=== PATIENT | male | born 1940 | race Caucasian/White ===

== ENCOUNTER 2022-04-06 09:51 | Outpatient (CLI) | payer MEDICARE, SELFPAY ==
--- NOTE | ~2022-04-06 | CT_ITS ---
EXAMINATION: CT abdomen pelvis wo con DATE: 04/06/2022 10:13 INDICATION: UTI. TECHNIQUE: Computed tomography (CT) of the abdomen and pelvis was performed without intravenous contr ast. The dose-length product was 993.60 mGy-cm. Automated exposure control and iterative reconstructi on technique were employed. COMPARISON: CT dated 04/19/2014. FINDINGS: Small right pleural effusion. Cardiomegaly. There is diffuse atherosclerosis of the aorta w ithout aneurysm. Status post cholecystectomy. No thoracic lymphadenopathy. There is bilateral hydrone phrosis with transition of the right ureter in the pelvis, suspicious for stricture. No obstructing s tone or mass identified. There is a 2-3 mm left UVJ stone with associated hydronephrosis. There are n onobstructing bilateral renal stones. There is a stable 2.2 cm low-density right adrenal mass, consis tent with adrenal adenoma. There is a 9.6 cm exophytic right renal cyst. There is decreased size of h emorrhagic cyst in the left kidney anteriorly. Bladder is severely distended. Prostate gland is enlar ged. Colonic diverticulosis without evidence for diverticulitis. There is a fat-containing left ingui nal hernia. Nonobstructive bowel gas pattern. There are calcified granulomas in the spleen. The pancr eas, left adrenal gland are unremarkable. IMPRESSION: 1. Left UVJ stone measuring 2-3 mm with moderate left hydroureteronephrosis. 2: Moderate right hydronephrosis with transition in the pelvis, suspicious for stricture. No obstruc ting stone or mass identified. 3: Nonobstructing bilateral nephrolithiasis. 4: Small hiatal hernia. Reviewed, dictated and finalized at location A. X ADMINISTRATOR IMPRESSION: 1. Left UVJ stone measuring 2-3 mm with moderate left hydroureteronephrosis. 2: Moderate right hydronephrosis with transition in the pelvis, suspicious for stricture. No obstructing stone or mass identified. 3: Nonobstructing bilateral nephrolithiasis. 4: Small hiatal hernia.
== END 2022-04-06 09:52 | disposition home or self-care (01) ==
PROVIDERS: PCP Family Medicine; Visit Provider Urology
DX: N39.0 Urinary tract infection, site not specified (principal); N20.0 Calculus of kidney; N20.1 Calculus of ureter; N13.30 Unspecified hydronephrosis; K44.9 Diaphragmatic hernia without obstruction or gangrene
CPT/HCPCS: 74176

== ENCOUNTER 2022-04-11 00:49 | Day surgery (SDC) | payer MEDICARE, SELFPAY ==
--- NOTE | 2022-04-09 14:11 | P.HP_ITS ---
History of Present Illness History of Present Illness Consent: Risks, benefits, and alternatives have been discussed and questions answered. Patient agrees to proceed with procedure. Chief complaint: protus infection, overactive bladderr Narrative: Robbi Oneill is a 82 year old male recently underwent fairly extensive evaluation for recurrent urinary tract infections. CT scan the abdomen and pelvis without contrast shows a 2-3 mm left distal ureteral stone along with right hydronephrosis of uncertain etiology. He has had no significant flank pain but does complain of, as noted above, recurrent urinary tract infections. I have discussed these findings with him and planned endoscopic evaluation of each ureter and collecting system. He is aware of the risk of this including ureteral injury, postoperative hematuria and possible need for additional procedures Review of Systems Cardiovascular: Cardiovascular: Denies chest pain, Denies lightheadedness, Denies palpitations and Denies dyspnea Respiratory: Respiratory: Denies dyspnea Gastrointestinal: Gastrointestinal: Denies diarrhea, Denies nausea and Denies vomiting Genitourinary: Genitourinary: Denies hematuria and Denies dysuria Endocrine: Endocrine: Denies palpitations Meds Home Medications and Allergies Allergies Allergy/AdvReac Type Severity Reaction Status Date / Time Penicillins Allergy Severe HIVES Unverified 09/15/09 06:30 Exam Const: General: no acute distress Resp: Effort & Inspection: normal respiratory effort GI: Inspection: non-distended GI Palp: No abdominal tenderness and No Guarding due to palpation present (GI) Auscultation: normal bowel sounds Assessment and Plan Assessment and plan (1) Left ureteral stone: Code(s): N20.1 - Calculus of ureter Status: Acute (2) Hydronephrosis, right: Code(s): N13.30 - Unspecified hydronephrosis Status: Acute Assessment and Plan: * Cystoscopy, left ureteroscopy with stone extraction * Right retrograde pyelography with right ureteroscopy
[2022-04-10 08:32] VITALS: BMI 29.5
--- NOTE | 2022-04-10 08:56 | PC.NURSE ---
Report to the Outpatient Waiting Room, entrance under the green pavilion located off [facility], at time __1230 on date __04/11/22 . Planned Procedure Time: __2:30 PM____. Time changes happen often and if your time is changed the preop area will call you the afternoon before. - You and your visitor will be asked to self-screen and do not enter if you have any COVID symptoms. - Only one visitor is requested with a max of two and NO children visitors are allowed at this time. - The patient visitor may be requested to leave or wait in car when not with patient due to distancing restrictions. - A mask is optional within the hospital at this time. Patients may have clear liquids (water, carbonated beverages, clear teas, apple juice) until 3 hours prior to surgery (1130 AM) with a maximum of 20 ounces. - No food from midnight until time of surgery - Infants may have breast milk until 4 hours before surgery, infant formula 6 hours prior to surgery. - Children will be allowed to drink immediately following surgery. If applicable, please bring a bottle or sippy cup to assist with drinking. Juice, water, soda, and popsicles are readily available. For infants on formula, please bring formula the day of surgery. Pacifiers are allowed. Take the following medications with a SIP of water the morning of surgery: _AMLODIPINE, BUSPIRONE, CEFDINIR, CITALOPRAM, & HYDROCODONE IF NEEDED_ DO NOT STOP ANY OF YOUR OTHER PRESCRIPTION MEDICATIONS PRIOR TO SURGERY ?EXCEPT THE FOLLOWING Medications to discontinue per physician _PT STATES STOPPING ELIQUIS 04/08/22_ Date to take last dose Please no make-up, nail vietnamese, hairspray, perfume, deodorant, or body powder the day of surgery. No jewelry (including any body piercings) or valuables the day of surgery, leave them at home. Please take a shower or bath the night before, or the morning of, surgery with an antibacterial soap. Wear comfortable, loose fitting clothing. Children are encouraged to wear pajamas. - Jewelry must be removed prior to entering the operating room. Rings and piercings that are not removed may be cut off. - The hospital will not accept responsibility for valuables. - Please leave all valuables, including medications, at home the day of surgery. If you are going home after surgery, a licensed canal driver must drive you home. - NO public transportation without another adult if you receive anesthesia. - We recommend that an adult stay with you for 24 hours following discharge. - We also recommend that you do not drive, make important decision, drink alcoholic beverages, or take any drugs that were not prescribed by your health care provider for at least 24 hours after your discharge time. For Pediatric surgeries, we recommend two adults accompany the child home. Follow any additional instructions given to you from your surgeon. If you or anyone in your household have experienced Covid symptoms in the past week, please notify your surgeon or the nurse liaison at the phone number below for possible testing. Telephone instructions given to _PATIENT & SPOUSE_and asked if any additional questions and then verbalized understanding. Patient advised to call surgeon office or pre surgery nurse liaison [phone] if any additional questions.
[2022-04-11] VITALS (7 sets, daily range): BP systolic 101–172; BP diastolic 59–91; PULSE 87–90; RESP 13–16; TEMP 36.2–36.9; O2SAT 95–100
--- NOTE | ~2022-04-11 | XR_ITS ---
EXAMINATION: XR retrograde pyelo w/stent RT DATE: 04/11/2022 14:57 INDICATION: Left renal stone extraction TECHNIQUE: 4 fluoroscopic images of the abdomen and pelvis were obtained during procedure performed angel Walker. Radiologist was not present for the imaging or procedure. The amount of fluoroscopy navin e used during this procedure was 2.1 minutes. COMPARISON: CT abdomen and pelvis dated 04/06/2022 FINDINGS: Retrograde contrast injection into the bilateral renal collecting systems demonstrates mild bilateral hydronephrosis. A wire was advanced through the right ureter in upper pole calyx of the right kidney . Subsequent image demonstrates a right internal ureteral stent with distal loop formed in the bladde r and the proximal loop extending into the contrast opacified collecting system likely to the upper p ole calyx but assessment is limited by the surrounding contrast. L2-L5 lumbar posterior fusion with b ilateral vertical fidel and pedicle screw fixation. IMPRESSION: 1. Mild bilateral hydronephrosis and placement of a right internal ureteral stent. See procedure note for further detail. Reviewed, dictated and finalized at location A. [facility]ATIONS IMPRESSION: 1. Mild bilateral hydronephrosis and placement of a right internal ureteral sandrine nt. See procedure note for further detail.
--- NOTE | 2022-04-11 07:03 | WPDHPUPDATE1 ---
History and Physical Update Update Date/Time: 04/11/22 07:03 History and Physical has been reviewed, including an updated exam of the patient. There are NO changes in the patient's condition. Risks, benefits, and alternatives have been discussed and questions answered. Patient agrees to proceed with procedure.
--- NOTE | 2022-04-11 11:04 | WPDANESEPPF ---
Anes - Initial Pre Proc Eval Procedure: Operation Date: 04/11/22 14:30 Proposed Procedures p Cystoscopy, Left Ureteroscopy with Left Stone Extraction, Right Ureteroscopy with Right Retrograde Pyelogram, Possible Stent Placement - Nikunj Walker MD Date/Time: 04/11/22 11:04 Surgeon: Nikunj Walker MD Pre Op Diagnosis: protus infection, overactive bladderr Patient Data Age: 82 Gender: M Height: 1.75 m Weight: 90.9 kg Allergies Allergy/AdvReac Type Severity Reaction Status Date / Time Penicillins Allergy Severe HIVES Verified 04/11/22 12:10 Home Medications Medication Instructions Recorded Confirmed Type amlodipine 2.5 mg tablet 2.5 mg DAILY 04/10/22 04/10/22 History apixaban 5 mg tablet (Eliquis) 5 mg BID 04/10/22 04/10/22 History buspirone 5 mg tablet 5 mg BID 04/10/22 04/10/22 History cefdinir 300 mg capsule 300 mg BID 04/10/22 04/10/22 History citalopram 20 mg tablet 20 mg BID 04/10/22 04/10/22 History diphenhydramine 25 2 tablet PO HS PRN Sleep 04/10/22 04/10/22 History mg-acetaminophen 500 mg tablet (Tylenol PM Extra Strength) ezetimibe 10 mg tablet 10 mg HS 04/10/22 04/10/22 History furosemide 80 mg tablet 40 mg DAILY 04/10/22 04/10/22 History hydrocodone 5 mg-acetaminophen 325 1 tablet HS PRN Pain 04/10/22 04/10/22 History mg tablet potassium chloride 20 mEq 20 meq PO DAILY 04/10/22 04/10/22 History tablet,extended release(part/cryst) tamsulosin 0.4 mg capsule 0.4 mg PO BID 04/10/22 04/10/22 History Patient hx anesthesia problems: none Family hx anesthesia problems: none Results Review: All pre-operative results and documents have been reviewed as part of the pre-operative evaluation. [facility] Past Medical History Medical History (Updated 04/11/22 @ 11:06 by Naif Simpson DO) Anxiety Atrial fibrillation CAD (coronary artery disease) CHF (congestive heart failure) Hyperlipidemia Hypertension CLAUDETTE (obstructive sleep apnea) Bipap Surgical History Surgical History (Updated 04/11/22 @ 11:06 by Naif Simpson DO) History of coronary artery stent placement Social History Social History Smoking status: Never smoker Second hand tobacco smoke exposure: No Alcohol intake: current Drinks per week: 4 Substance use: never Substance use type: does not use Living arrangements: with family Spiritual care concerns: No Anes - Eval Final PreProcedure Day of Procedure 04/11/22 11:04 Patient weight: overweight Heart: regular rate and rhythm Lungs: clear to auscultation Airway: Mallampati scale class II Neurological: alert and oriented Last oral intake: >/= 8 hours ASA classification: IV Emergent: no Anesthetic plan: proceed Anesthesia type and monitoring: general LMA and standard monitoring Results Review: All pre-operative results and documents have been reviewed as part of the pre-operative evaluation. Informed Consent: The patient's anesthetic plan and its attendant risks and benefits were discussed with the patient/family/POA. Questions were solicited and answers provided to the satisfaction of the patient/family/POA.
--- NOTE | 2022-04-11 11:30 | ECG_ITS ---
Measurements Intervals [place] Rate: 74 P: 66 [place]: 171 QRS: -20 QRSD: 105 T: 94 QT: 414 QTc: 460 Interpretive Statements SINUS RHYTHM WITH FREQUENT SUPRAVENTRICULAR PREMATURE COMPLEXES NONSPECIFIC ST & T-WAVE ABNORMALITY ABNORMAL ECG NO PREVIOUS ECG AVAILABLE FOR COMPARISON Electronically Signed On 04-11-2022 14:02:06 [employer]EWATER PLANT OPERATOR by Kirby White M.D.
[2022-04-11] MEDS: LACTATED RINGERS 1,000 ML 30 ML IV CONT (12:14)
[2022-04-11 12:21] LABS: Anion Gap 6 mmol/L (8-16); Blood Urea Nitrogen 20 mg/dL (9-20); Carbon Dioxide 28 mmol/L (22-30); Chloride 110 mmol/L (98-107); Estimated CRCL calculation 35 ml/min; Estimated Glomerular Filt Rate 48; Glucose 97 mg/dL (65-110); Potassium 3.8 mmol/L (3.4-5.0); Sodium 144 mmol/L (137-145)
[2022-04-11] MEDS: ceFAZolin 2 GM/D5W 50 ML 2 GM/50 ML BAG IVPB (13:46)
--- NOTE | 2022-04-11 14:58 | W.PM.PROC2 ---
Procedure Note - Detailed Date of Procedure 04/11/22 Pre-op Diagnosis Recurrent UTI, left ureteral stone, right hydronephrosis Post-op Diagnosis Other (1. Left renal stone (no ureteral stone) 2. 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 Cystoscopy is undertaken with a 21 F rigid cystoscope. He has some significant lateral lobe hyperplasia with a small median lobe of the prostate. Prostatic urethra measures 3 cm. The bladder was trabeculated but without cellule formation. There was no intravesical foreign body or neoplasm. Is a single orthotopic ureteral orifice bilaterally. A 0.035 in glidewire was advanced in the left collecting system. Distal ureter was dilated with an 8 F 10 F dilator. The distal ureter was scoped with a short tapered semi-rigid ureteral scope. There found to be no stones at that site. He does have a small stone in his left kidney. I placed a 7.5 F flexible ureteral scope into the kidney. I fractured the stone in a left mid pole calyx with a 200 micron holmium laser fiber. The largest chip was evacuated. We used a dusting technique in the room no significant residual fragments left. I inspected the remainder of the ureter on the way out and, again, there were no ureteral stones. I opted not to place a stent in the left side. Right retrograde pyelography was undertaken with an angiographic catheter and a bulb tip catheter. There appears to be narrowing of the right ureter at the ureterovesical junction with more proximal hydronephrosis. I placed a 0.035 in glidewire to the right collecting system, dilated the distal ureter with an 8 F 10 F dilator. I performed distal ureteroscopy with a short tapered semi-rigid ureteral scope. There was no intravesical or intraureteral stones or other pathology in the distal right ureter. I did place a 6 F variable length stent which were I intend to leave for 2 weeks. Scopes and wires removed and he was taken to recovery room good condition. Drains Yes Packing No Pathology None sent Condition Stable
== END 2022-04-11 16:30 | disposition home or self-care (01) ==
PROVIDERS: Anesthesiology; PCP Family Medicine; Visit Provider Urology
PROC: (CPT 52352; principal; 2022-04-11 14:30)
DX: N20.0 Calculus of kidney (principal); N13.30 Unspecified hydronephrosis; I48.91 Unspecified atrial fibrillation; I25.10 Atherosclerotic heart disease of native coronary artery without angina pectoris; I11.0 Hypertensive heart disease with heart failure; I50.9 Heart failure, unspecified; E78.5 Hyperlipidemia, unspecified; G47.33 Obstructive sleep apnea (adult) (pediatric); F41.9 Anxiety disorder, unspecified; Z79.01 Long term (current) use of anticoagulants; Z95.5 Presence of coronary angioplasty implant and graft; Z87.440 Personal history of urinary (tract) infections
CPT/HCPCS: 52332; 52353; 36415; 74420; 80048; 82365; 88300; 93005; A9270; C1758; C1769; C2617; J0690; J2370; J2405; J2704; J3010; J7120

== ENCOUNTER 2022-04-26 10:53 | Outpatient (CLI) | payer MEDICARE, SELFPAY ==
--- NOTE | ~2022-04-26 | US_ITS ---
US renal BI 04/26/2022 11:52 Procedure: Realtime transabdominal ultrasound of the kidneys and bladder. Indication: Status post left ureteral stone extraction with dilated ureter on the right. Comparison: CT dated 04/06/2022 Findings: Renal echotexture is normal bilaterally without contour deforming mass or renal calculus. T here is moderate bilateral hydronephrosis. The right kidney measures 12.7 cm and left kidney measures 12.6 cm. Bladder within normal limits. Impression: 1: Moderate bilateral hydronephrosis. Reviewed, dictated and finalized at location A. CIATE PROFESSOR OF PHYSICS Impression: 1: Moderate bilateral hydronephrosis.
== END 2022-04-26 10:54 | disposition home or self-care (01) ==
PROVIDERS: PCP Family Medicine; Visit Provider Urology
DX: N13.30 Unspecified hydronephrosis (principal)
CPT/HCPCS: 76775

== ENCOUNTER 2022-05-23 16:36 | Emergency (ER) | payer MEDICARE, SELFPAY ==
[2022-05-23 17:42] VITALS: BP 109/43; PULSE 60; RESP 15; TEMP 36.4; O2SAT 100
[2022-05-23 19:04] LABS: Bacteria Urine 4+ /hpf; Non Pathogenic Casts 0-2; RBC Urine >100 /hpf (0-2); Squamous Epithelial Cell Urine None seen /hpf (Few); WBC Urine 51-100 /hpf
[2022-05-23 19:17] LABS: Appearance Urine Turbid (Clear); Bilirubin Urine Negative (Negative); Blood Urine 3+ (Negative); Glucose Urine UA Negative (Negative); Ketones Urine Negative (Negative); Leukocyte Esterase Ur 3+ LEU/UL (Negative); Nitrate Urine Negative (Negative); Protein Urine 2+ mg/dL (Negative); Specific Grav Ur 1.011 (1.001-1.035); pH Urine 8.5 (5.0-9.0)
[2022-05-23 19:20] LABS: Color Urine Light Red (Yellow)
[2022-05-23 19:21] LABS: Add Urine Microscopic? YES
--- NOTE | 2022-05-23 20:20 | ED.GENADULT ---
HPI - General Adult General Chief complaint: Urogenital-Male Stated complaint: blocked urinary catheter Time Seen by Provider: 05/23/22 19:33 History of Present Illness HPI narrative: This is an 82-year-old male with chronic indwelling Jacinto presenting to ED with decreased urine output. Patient notes over last 2 days his Jacinto has not been draining. He then developed abdominal pain in the suprapubic area. He denies fever, chills nausea vomiting diarrhea or any other complaints. Patient follows with Dr. Walker and has an appointment w/ him later this month. Related Data Home Medications Medication Instructions Recorded Confirmed amlodipine 2.5 mg tablet 2.5 mg DAILY 04/10/22 04/10/22 apixaban 5 mg tablet (Eliquis) 5 mg BID 04/10/22 04/10/22 buspirone 5 mg tablet 5 mg BID 04/10/22 04/10/22 cefdinir 300 mg capsule 300 mg BID 04/10/22 04/10/22 citalopram 20 mg tablet 20 mg BID 04/10/22 04/10/22 diphenhydramine 25 2 tablet PO HS PRN Sleep 04/10/22 04/10/22 mg-acetaminophen 500 mg tablet (Tylenol PM Extra Strength) ezetimibe 10 mg tablet 10 mg HS 04/10/22 04/10/22 furosemide 80 mg tablet 40 mg DAILY 04/10/22 04/10/22 hydrocodone 5 mg-acetaminophen 325 1 tablet HS PRN Pain 04/10/22 04/10/22 mg tablet potassium chloride 20 mEq 20 meq PO DAILY 04/10/22 04/10/22 tablet,extended release(part/cryst) tamsulosin 0.4 mg capsule 0.4 mg PO BID 04/10/22 04/10/22 Allergies Allergy/AdvReac Type Severity Reaction Status Date / Time Penicillins Allergy Severe HIVES Verified 05/23/22 19:33 [facility] Past Medical History Medical History Anxiety Atrial fibrillation CAD (coronary artery disease) CHF (congestive heart failure) Hyperlipidemia Hypertension CLAUDETTE (obstructive sleep apnea) Bipap Surgical History Surgical History History of coronary artery stent placement Social History Social History Smoking status: Never smoker Second hand tobacco smoke exposure: No Alcohol intake: current Drinks per week: 4 Substance use: never Substance use type: does not use Living arrangements: with family Spiritual care concerns: No Exam Narrative: APPEARANCE: No apparent distress. Head: atraumatic. EYES: EOMI, NOSE: Atraumatic NECK: Trachea midline RESPIRATORY: No increased rate of breathing, CTAB CARDIOVASCULAR: RRR, ABDOMINAL: Patient's jacinto has been replaced the time of my physical exam. His abdomen soft nontender no guarding or rebound. MUSCULOSKELETAl: No obvious deformities NEURO: Alert. Moving 4/4 extremities SKIN:: Warm, dry. Normal color PSYCHIATRIC: Normal affect Course Vital Signs Vital signs: Vital Signs Temperature 97.6 F 05/23/22 17:42 Pulse Rate 60 05/23/22 17:42 Respiratory Rate 15 05/23/22 17:42 Blood Pressure 109/43 L 05/23/22 17:42 Pulse Oximetry 100 05/23/22 17:42 Oxygen Delivery Room Air 05/23/22 17:42 Temperature 97.6 F 05/23/22 17:42 Pulse Rate 60 05/23/22 17:42 Respiratory Rate 15 05/23/22 17:42 Blood Pressure 109/43 L 05/23/22 17:42 Pulse Oximetry 100 05/23/22 17:42 Oxygen Delivery Room Air 05/23/22 17:42 Medical Decision Making [facility] Narrative Medical decision making narrative: -Presentation: 82-year-old male presenting with obstructed Jacinto -DDX includes but is not limited to: Jacinto malfunction, UTI -Co-morbidities complicating care: BPH, chronic anticoagulation -Social determinants of health: 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 Plus four bacteria. -Dx tests considered but not ordered: -Proce
[2022-05-23] MEDS: CIPROFLOXACIN 500 MG TAB PO (20:39)
[2022-05-23 20:59] VITALS: BP 138/72; PULSE 79; RESP 17; O2SAT 99
== END 2022-05-23 21:00 | disposition home or self-care (01) ==
PROVIDERS: Emergency Medicine; Emergency Provider Emergency Medicine; PCP Family Medicine
DX: N39.0 Urinary tract infection, site not specified (principal); R33.9 Retention of urine, unspecified; I48.91 Unspecified atrial fibrillation; I25.10 Atherosclerotic heart disease of native coronary artery without angina pectoris; I50.9 Heart failure, unspecified; I11.0 Hypertensive heart disease with heart failure; E78.5 Hyperlipidemia, unspecified; G47.33 Obstructive sleep apnea (adult) (pediatric); Z95.5 Presence of coronary angioplasty implant and graft; Z95.0 Presence of cardiac pacemaker; Z79.01 Long term (current) use of anticoagulants
CPT/HCPCS: 51702; 81001; 87077; 87086; 87186; 99283; A9270

== ENCOUNTER 2022-06-12 09:04 | Outpatient (CLI) | payer MEDICARE, SELFPAY ==
--- NOTE | ~2022-06-12 | US_ITS ---
EXAMINATION: US renal BI DATE: 06/12/2022 09:56 INDICATION: HYDRONEPHROSIS, RIGHT TECHNIQUE: Multiple grayscale and Doppler ultrasound images of the kidneys were obtained. COMPARISON: 04/26/2022; CT abdomen and pelvis 04/06/2022. FINDINGS: The right kidney measures 11.4 x 5.2 x 5.5 cm. The left kidney measures 11.7 x 5.0 x 5.8 cm. The kidn eys demonstrate normal parenchymal echogenicity. 10.7 cm exophytic right renal cyst, with thin mchugh, and a thin internal septum (Bosniak 2). 1.3 cm simple left renal cyst. There is mild bilateral hydro nephrosis. The bladder is partially decompressed by a Mathew catheter. IMPRESSION: Mild bilateral hydronephrosis. Bilateral simple renal cysts, measuring up to 10.7 cm on the right. Reviewed, dictated and finalized at location K. IMPRESSION: Mild bilateral hydronephrosis. Bilateral simple renal cysts, measuring up to 10 .7 cm on the right.
== END 2022-06-12 09:05 | disposition home or self-care (01) ==
LOC: ANHIMG 09:16
PROVIDERS: PCP Family Medicine; Visit Provider Urology
DX: N13.30 Unspecified hydronephrosis (principal); N28.1 Cyst of kidney, acquired
CPT/HCPCS: 76775

== ENCOUNTER 2023-03-11 13:52 | Outpatient (CLI) | payer MEDICARE, SELFPAY ==
[2023-03-11 14:26] LABS: Anion Gap 5 mmol/L (8-16); Blood Urea Nitrogen 26 mg/dL (9-20); Calcium 8.4 mg/dL (8.4-10.2); Carbon Dioxide 29 mmol/L (22-30); Chloride 103 mmol/L (98-107); Estimated Glomerular Filt Rate 38; Glucose 93 mg/dL (65-110); Sodium 137 mmol/L (137-145)
== END 2023-03-11 13:53 | disposition home or self-care (01) ==
LOC: ANHSURGERY 13:56
PROVIDERS: Anesthesiology; PCP Family Medicine; Visit Provider Urology
DX: I10 Essential (primary) hypertension (principal); Z01.818 Encounter for other preprocedural examination
CPT/HCPCS: 36415; 80048

== ENCOUNTER 2023-03-13 01:10 | Day surgery (SDC) | payer MEDICARE, SELFPAY ==
--- NOTE | 2023-03-07 09:28 | PC.NURSE ---
Report to the Outpatient Waiting Room, entrance under the green pavilion located off [facility], at time _1200 on date _03/13/23 . Planned Procedure Time: _1400 . Time changes happen often and if your time is changed the preop area will call you the afternoon before. - You and your visitor will be asked to self-screen and do not enter if you have any COVID symptoms. - A mask is optional within the hospital at this time. Patients may have clear liquids (water, carbonated beverages, clear teas, apple juice) until 3 hours prior to surgery( 11:00 AM) with a maximum of 20 ounces. - No food from midnight until time of surgery - Infants may have breast milk until 4 hours before surgery, infant formula 6 hours prior to surgery. - Children will be allowed to drink immediately following surgery. If applicable, please bring a bottle or sippy cup to assist with drinking. Juice, water, soda, and popsicles are readily available. For infants on formula, please bring formula the day of surgery. Pacifiers are allowed. Take the following medications with a SIP of water the morning of surgery: __INHALER IF NEEDED,AMLODIPINE,BUSPIRONE,METOPROLOL DO NOT STOP ANY OF YOUR OTHER PRESCRIPTION MEDICATIONS PRIOR TO SURGERY ?EXCEPT THE FOLLOWING Medications to discontinue per physician ___PT STATES LAST DOSE ASPIRIN 03/06/23 AND HOLD ELIQUIS 3 DAYS PRE OP .PER DR HENNESSY LAST DOSE 03/09/23 Please no make-up, nail chadian, hairspray, perfume, deodorant, or body powder the day of surgery. No jewelry (including any body piercings) or valuables the day of surgery, leave them at home. Please take a shower or bath the night before, or the morning of, surgery with an antibacterial soap. Wear comfortable, loose fitting clothing. Children are encouraged to wear pajamas. - Jewelry must be removed prior to entering the operating room. Rings and piercings that are not removed may be cut off. - The hospital will not accept responsibility for valuables. - Please leave all valuables, including medications, at home the day of surgery. If you are going home after surgery, a licensed fire truck driver must drive you home. - NO public transportation without another adult if you receive anesthesia. - We recommend that an adult stay with you for 24 hours following discharge. - We also recommend that you do not drive, make important decision, drink alcoholic beverages, or take any drugs that were not prescribed by your health care provider for at least 24 hours after your discharge time. For Pediatric surgeries, we recommend two adults accompany the child home. Follow any additional instructions given to you from your surgeon. If you or anyone in your household have experienced Covid symptoms in the past week, please notify your surgeon or the nurse liaison at the phone number below for possible testing. Telephone instructions given to ___PT AND TETE MUNOZ and asked if any additional questions and then verbalized understanding. Patient advised to call surgeon office or pre surgery nurse liaison [phone] if any additional questions.
[2023-03-07 09:45] VITALS: BMI 29.5
--- NOTE | 2023-03-07 10:43 | PM.HPGS ---
History of Present Illness History of Present Illness Consent: Risks, benefits, and alternatives have been discussed and questions answered. Patient agrees to proceed with procedure. Chief complaint: Right Ureteral Stone Narrative: Robbi Oneill is a 83 year old male well known to me with a long history of BPH. He recently took a fall and developed gross hematuria. The CT scan of the abdomen and pelvis at [facility] demonstrated 9 mm stone in his right kidney and a 3 mm stone in his left. After discussion of options he had elected for right ESWL. In the interval, before he could have that done, the stone dropped into his ureter necessitating a ureteral stent placement at [facility]. He now presents for cystoscopy with right ureteroscopy, laser lithotripsy with stone extraction, possible retrograde pyelography and stent replacement. He is aware the risk including, but not limited to, recurrent stones, need for additional procedures, postoperative hematuria and perinephric hematoma. Review of Systems Cardiovascular: Cardiovascular: Denies chest pain, Denies lightheadedness, Denies palpitations and Denies dyspnea Respiratory: Respiratory: Denies dyspnea Gastrointestinal: Gastrointestinal: Denies diarrhea, Denies nausea and Denies vomiting Genitourinary: Genitourinary: Denies hematuria and Denies dysuria Endocrine: Endocrine: Denies palpitations PMFSH Past Medical History Medical History Anxiety Atrial fibrillation CAD (coronary artery disease) CHF (congestive heart failure) Hyperlipidemia Hypertension CLAUDETTE (obstructive sleep apnea) Bipap Surgical History Surgical History History of coronary artery stent placement Social History Social History Smoking status: Never smoker Second hand tobacco smoke exposure: No Alcohol intake: current Drinks per week: 4 Substance use: never Substance use type: does not use Living arrangements: with family Spiritual care concerns: No Meds Home Medications and Allergies Home Medications Medication Instructions Recorded Confirmed Type apixaban 5 mg tablet (Eliquis) 5 mg BID 04/10/22 03/07/23 History buspirone 5 mg tablet 5 mg PO BID 04/10/22 03/07/23 History ezetimibe 10 mg tablet 10 mg PO HS 04/10/22 03/07/23 History potassium chloride 20 mEq 20 meq PO DAILY 04/10/22 03/07/23 History tablet,extended release(part/cryst) tamsulosin 0.4 mg capsule 0.4 mg PO BID 04/10/22 03/07/23 History hydrocodone 5 mg-acetaminophen 325 1 - 2 tablet PO Q6H PRN pain #20 04/11/22 03/07/23 Rx mg tablet tabs albuterol sulfate 90 mcg/actuation 2 puff inhalation PRN PRN 03/07/23 03/07/23 History aerosol inhaler Shortness Of Breath amlodipine 5 mg tablet 5 mg PO DAILY 03/07/23 03/07/23 History aspirin 81 mg tablet,delayed 81 mg PO DAILY 03/07/23 03/07/23 History release (Adult Low Dose Aspirin) cefdinir 300 mg capsule 300 mg PO BID 03/07/23 03/07/23 History finasteride 5 mg tablet 5 mg PO HS 03/07/23 03/07/23 History fluticasone propionate 50 2 spray intranasal PRN PRN Allergy 03/07/23 03/07/23 History mcg/actuation nasal Symptoms spray,suspension furosemide 20 mg tablet 40 mg PO DAILY 03/07/23 03/07/23 History metoprolol tartrate 50 mg tablet 50 mg PO BID 03/07/23 03/07/23 History ondansetron 4 mg disintegrating 4 mg PO PRN PRN Nausea 03/07/23 03/07/23 History tablet pantoprazole 40 mg tablet,delayed 40 mg PO DAILY 03/07/23 03/07/23 History release Allergies Allergy/AdvReac Type Severity Reaction Status Date / Time Penicillins Allergy Severe HIVES Verified 03/07/23 09:08 Exam Const: General: no acute distress Resp: Effort & Inspection: normal respiratory effort GI: Inspection: non-distended GI Palp: No abdominal tenderness and No Guarding due to palpa
--- NOTE | 2023-03-07 10:45 | PM.HPGS ---
History of Present Illness History of Present Illness Consent: Risks, benefits, and alternatives have been discussed and questions answered. Patient agrees to proceed with procedure. Chief complaint: Right Ureteral Stone Narrative: Robbi Oneill is a 83 year old male with a known history of prostate cancer status post pelvic radiation that was completed in May 2019. He recently developed gross hematuria. 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 Cystoscopy initially was felt to be unremarkable but upon repeat cystoscopy he has an unusual sessile looking lesion in the left lateral bladder wall. After discussion he elects for TURBT. He is aware the risk including, but not limited to, need for additional procedures, bladder wall injury, postoperative hematuria and recurrence of this lesion. Review of Systems Cardiovascular: Cardiovascular: Denies chest pain, Denies lightheadedness, Denies palpitations and Denies dyspnea Respiratory: Respiratory: Denies dyspnea Gastrointestinal: Gastrointestinal: Denies diarrhea, Denies nausea and Denies vomiting Genitourinary: Genitourinary: Denies hematuria and Denies dysuria Endocrine: Endocrine: Denies palpitations PMFSH Past Medical History Medical History Anxiety Atrial fibrillation CAD (coronary artery disease) CHF (congestive heart failure) Hyperlipidemia Hypertension CLAUDETTE (obstructive sleep apnea) Bipap Surgical History Surgical History History of coronary artery stent placement Social History Social History Smoking status: Never smoker Second hand tobacco smoke exposure: No Alcohol intake: current Drinks per week: 4 Substance use: never Substance use type: does not use Living arrangements: with family Spiritual care concerns: No Meds Home Medications and Allergies Home Medications Medication Instructions Recorded Confirmed Type apixaban 5 mg tablet (Eliquis) 5 mg BID 04/10/22 03/07/23 History buspirone 5 mg tablet 5 mg PO BID 04/10/22 03/07/23 History ezetimibe 10 mg tablet 10 mg PO HS 04/10/22 03/07/23 History potassium chloride 20 mEq 20 meq PO DAILY 04/10/22 03/07/23 History tablet,extended release(part/cryst) tamsulosin 0.4 mg capsule 0.4 mg PO BID 04/10/22 03/07/23 History hydrocodone 5 mg-acetaminophen 325 1 - 2 tablet PO Q6H PRN pain #20 04/11/22 03/07/23 Rx mg tablet tabs albuterol sulfate 90 mcg/actuation 2 puff inhalation PRN PRN 03/07/23 03/07/23 History aerosol inhaler Shortness Of Breath amlodipine 5 mg tablet 5 mg PO DAILY 03/07/23 03/07/23 History aspirin 81 mg tablet,delayed 81 mg PO DAILY 03/07/23 03/07/23 History release (Adult Low Dose Aspirin) cefdinir 300 mg capsule 300 mg PO BID 03/07/23 03/07/23 History finasteride 5 mg tablet 5 mg PO HS 03/07/23 03/07/23 History fluticasone propionate 50 2 spray intranasal PRN PRN Allergy 03/07/23 03/07/23 History mcg/actuation nasal Symptoms spray,suspension furosemide 20 mg tablet 40 mg PO DAILY 03/07/23 03/07/23 History metoprolol tartrate 50 mg tablet 50 mg PO BID 03/07/23 03/07/23 History ondansetron 4 mg disintegrating 4 mg PO PRN PRN Nausea 03/07/23 03/07/23 History tablet pantoprazole 40 mg tablet,delayed 40 mg PO DAILY 03/07/23 03/07/23 History release Allergies Allergy/AdvReac Type Severity Reaction Status Date / Time Penicillins Allergy Severe HIVES Verified 03/07/23 09:08 Exam Const: General: no acute distress Resp: Effort & Inspection: normal respiratory effort GI: Inspection: non-distended GI Palp: No abdominal tenderness and No Guarding due to palpation present (GI) Auscultation: normal bowel sounds Assessment and Plan Assessment and plan (1) Gross hematuria: Code(s): R31.0 - Gross hematuria Status: A
[2023-03-13] VITALS (9 sets, daily range): BP systolic 103–148; BP diastolic 50–67; PULSE 60–76; RESP 13–16; TEMP 36.2; O2SAT 98–100
--- NOTE | ~2023-03-13 | XR_ITS ---
EXAMINATION: XR retrograde pyelo w/stent RT DATE: 03/13/2023 12:55 INDICATION: Right ureteral stone. TECHNIQUE: 37 intraoperative fluoroscopic views of the abdomen and pelvis were obtained. I was not pr esent. Fluoroscopy exposure time was 61 seconds. COMPARISON: CT abdomen and pelvis 04/07/22 FINDINGS: There are changes of posterior fusion procedure in lumbar spine. There is a total left hip arthroplasty. Surgical clips in the right upper quadrant are likely from cholecystectomy. There is a right internal ureteral stent in expected position. IMPRESSION: 1. Right internal ureteral stent in expected position. Reviewed, dictated and finalized at location E. K CABLEMAN
--- NOTE | 2023-03-13 06:24 | WPDHPUPDATE1 ---
History and Physical Update Update Date/Time: 03/13/23 06:24 History and Physical has been reviewed, including an updated exam of the patient. There are NO changes in the patient's condition. Risks, benefits, and alternatives have been discussed and questions answered. Patient agrees to proceed with procedure.
[2023-03-13] MEDS: LACTATED RINGERS 1,000 ML 30 ML IV CONT (10:30)
--- NOTE | 2023-03-13 11:50 | WPDANESEPPF ---
Anes - Initial Pre Proc Eval Procedure: Operation Date: 03/13/23 12:00 Proposed Procedures p Cystoscopy, Right Ureteroscopy, Right Stone Extraction, Possible Holmium Laser Lithotripsy, Possible Right Stent Placement, Possible Right Retrograde Pyelogram - Nikunj Walker MD Date/Time: 03/13/23 11:50 Surgeon: Nikunj Walker MD Pre Op Diagnosis: Right Ureteral Stone Patient Data Age: 83 Gender: M Height: 1.75 m Weight: 90.8 kg Last Vital Signs Temp 97.1 F L 03/13/23 10:18 Pulse 76 03/13/23 10:18 Resp 16 03/13/23 10:18 BP 103/51 L 03/13/23 10:18 Pulse Ox 100 03/13/23 10:18 O2 Del Method Room Air 03/13/23 10:18 Allergies Allergy/AdvReac Type Severity Reaction Status Date / Time Penicillins Allergy Severe HIVES Verified 03/13/23 10:07 Home Medications Medication Instructions Recorded Confirmed Type apixaban 5 mg tablet (Eliquis) 5 mg BID 04/10/22 03/07/23 History buspirone 5 mg tablet 5 mg PO BID 04/10/22 03/07/23 History ezetimibe 10 mg tablet 10 mg PO HS 04/10/22 03/07/23 History potassium chloride 20 mEq 20 meq PO DAILY 04/10/22 03/07/23 History tablet,extended release(part/cryst) tamsulosin 0.4 mg capsule 0.4 mg PO BID 04/10/22 03/07/23 History hydrocodone 5 mg-acetaminophen 325 1 - 2 tablet PO Q6H PRN pain #20 04/11/22 03/07/23 Rx mg tablet tabs albuterol sulfate 90 mcg/actuation 2 puff inhalation PRN PRN 03/07/23 03/07/23 History aerosol inhaler Shortness Of Breath amlodipine 5 mg tablet 5 mg PO DAILY 03/07/23 03/07/23 History aspirin 81 mg tablet,delayed 81 mg PO DAILY 03/07/23 03/07/23 History release (Adult Low Dose Aspirin) cefdinir 300 mg capsule 300 mg PO BID 03/07/23 03/07/23 History finasteride 5 mg tablet 5 mg PO HS 03/07/23 03/07/23 History fluticasone propionate 50 2 spray intranasal PRN PRN Allergy 03/07/23 03/07/23 History mcg/actuation nasal Symptoms spray,suspension furosemide 20 mg tablet 40 mg PO DAILY 03/07/23 03/07/23 History metoprolol tartrate 50 mg tablet 50 mg PO BID 03/07/23 03/07/23 History ondansetron 4 mg disintegrating 4 mg PO PRN PRN Nausea 03/07/23 03/07/23 History tablet pantoprazole 40 mg tablet,delayed 40 mg PO DAILY 03/07/23 03/07/23 History release Patient hx anesthesia problems: none Family hx anesthesia problems: none Results Review: All pre-operative results and documents have been reviewed as part of the pre-operative evaluation. [facility] Past Medical History Medical History Anxiety Atrial fibrillation CAD (coronary artery disease) CHF (congestive heart failure) Hyperlipidemia Hypertension CLAUDETTE (obstructive sleep apnea) Bipap Surgical History Surgical History History of coronary artery stent placement Social History Social History Smoking status: Never smoker Second hand tobacco smoke exposure: No Alcohol intake: current Drinks per week: 4 Substance use: never Substance use type: does not use Living arrangements: with family Spiritual care concerns: No Anes - Eval Final PreProcedure Day of Procedure 03/13/23 11:50 Patient weight: obese Heart: regular rate and rhythm Lungs: clear to auscultation Airway: Mallampati scale class III Neurological: alert and oriented Last oral intake: >/= 8 hours ASA classification: IV Emergent: no Anesthetic plan: proceed Anesthesia type and monitoring: general LMA and standard monitoring (had CHF in hospital in [place]; Lasix given; no ECHO or EF on chart; will treat as decreased EF) Results Review: All pre-operative results and documents have been reviewed as part of the pre-operative evaluation. Informed Consent: The patient's anesthetic plan and its attendant risks and benefits were discussed with the patient/family/POA. Questions were solicited and answers provided to the sa
[2023-03-13] MEDS: ceFAZolin 2 GM/D5W 50 ML 2 GM/50 ML BAG IVPB (12:03)
[2023-03-13] MEDS: LIDOCAINE HCL 2% GEL UROJET 10 ML PKG MUCOUS MEM (12:24)
--- NOTE | 2023-03-13 12:50 | W.PM.PROC2 ---
Procedure Note - Detailed Date of Procedure 03/13/23 Pre-op Diagnosis Right Ureteral Stone Post-op Diagnosis Same Procedure Performed Cystoscopy, right retrograde pyelography, right ureteroscopy with laser lithotripsy, stone extraction and stent replacement Surgeon Nikunj Walker MD Anesthesia General Description of Procedure Patient is brought to the operative suite was prepped and draped in routine sterile fashion while in dorsal lithotomy position after the uneventful induction of a general LMA anesthetic. Cystoscopy was undertaken with a 21 F rigid cystoscope after placing 2% lidocaine jelly in his urethra. Tip of the indwelling stent is grasped and the stent is removed with ease. A 0.035 in glidewire was advanced into his right renal pelvis and the distal ureter was dilated with an 8 F 10 F dilator. I 1st performed rigid ureteroscopy of the distal ureter. The stone is not present in the distal ureter. I performed a retrograde pyelogram through the rigid ureteral scope. I can see a filling defect in the proximal ureter. An 11 F / 13 F ureteral access sheath was placed and a safety wire was placed. Ureteroscopy undertaken with a 7.5 F flexible ureteral scope. The 9 mm proximal ureteral stone is fractured with a 200 micron Carloz laser fiber. The stone was dusted. All fragments were removed with a 1.9 F disposable stone basket. Rhinoscopy and ureteroscopy of the more proximal ureter was unremarkable. A 4.8 F ureteral stent is placed with proximal coil in the renal pelvis and distal coil in the bladder. Scopes wires removed he was taken to the recovery room good condition Drains Yes Packing No Pathology Yes Complications No immediate complications Condition Stable Disposition PACU
== END 2023-03-13 14:50 | disposition home or self-care (01) ==
PROVIDERS: PCP Family Medicine; Visit Provider Urology
PROC: (CPT 52352; principal; 2023-03-13 12:00)
DX: N20.1 Calculus of ureter (principal); I11.0 Hypertensive heart disease with heart failure; I50.9 Heart failure, unspecified; F41.9 Anxiety disorder, unspecified; E78.5 Hyperlipidemia, unspecified; G47.33 Obstructive sleep apnea (adult) (pediatric); E66.9 Obesity, unspecified; Z68.29 Body mass index [BMI] 29.0-29.9, adult; Z99.89 Dependence on other enabling machines and devices; Z96.0 Presence of urogenital implants; Z86.79 Personal history of other diseases of the circulatory system; Z79.01 Long term (current) use of anticoagulants; Z79.891 Long term (current) use of opiate analgesic; Z79.51 Long term (current) use of inhaled steroids; Z79.82 Long term (current) use of aspirin
CPT/HCPCS: 52356; 36415; 74420; 80048; 82365; 88300; C1758; C1769; C1894; C2617; J0690; J1100; J2371; J2405; J2704; J3010; J7120; Q9966

== ENCOUNTER 2023-06-03 09:56 | Outpatient (CLI) | payer MEDICARE, SELFPAY ==
--- NOTE | ~2023-06-03 | XR_ITS ---
XR abdomen/kub 1V 06/03/2023 10:15 Indication: Renal stones Procedure: KUB Comparison: Comparison to multiple prior studies sequentially, with oldest reviewed study dated 06/03. Findings: There is severe lumbar spondylosis. There is fusion from L2-L5 with pedicle screws. There i s dextroscoliosis. There is a right renal stone. There is a left total hip arthroplasty. 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 Bowel pattern nonobstructive. Moderate colonic fecal loading. Impression: 1: Right nephrolithiasis. Reviewed, dictated and finalized at location L. Impression: 1: Right nephrolithiasis.
== END 2023-06-03 09:57 | disposition home or self-care (01) ==
PROVIDERS: PCP Family Medicine; Visit Provider Urology
DX: N20.0 Calculus of kidney (principal)
CPT/HCPCS: 74018

== ENCOUNTER 2023-09-15 09:50 | Outpatient (CLI) | payer MEDICARE, SELFPAY ==
--- NOTE | 2023-09-15 09:57 | ECG_ITS ---
Test Date: 2023-09-15 10:19:14 Measurements Intervals [place] Rate: 68 P: 0 IN: 0 QRS: 267 QRSD: 175 T: 76 QT: 488 QTc: 520 Interpretive Statements ELECTRONIC ATRIAL PAEMAKER WITH INHIBITION ELECTRONIC VENTRICULAR PACEMAKER BASELINE ARTIFACT- I, II, III, AVR, AVL, AVF NO FURTHER INTERPRETATION IS POSSIBLE ATYPICAL ECG No previous ECG available for comparison Electronically Signed On 09-15-2023 10:50:36 CDT by Lloyd Quinonez D.O.
[2023-09-15 10:40] LABS: INR 1.3; Prothrombin Time 16.9 Seconds (11.1-14.7)
[2023-09-15 10:41] LABS: Partial Thromboplastin Time 34.6 Seconds (22.3-36.8)
[2023-09-15 10:46] LABS: Anion Gap 11 mmol/L (4-12); Blood Urea Nitrogen 30 mg/dL (9-20); Carbon Dioxide 24 mmol/L (22-30); Chloride 105 mmol/L (98-107); Estimated Glomerular Filt Rate 48; Glucose 98 mg/dL (65-110); Sodium 140 mmol/L (137-145)
== END 2023-09-15 09:51 | disposition home or self-care (01) ==
LOC: ANHSURGERY 09:53
PROVIDERS: Anesthesiology; PCP Family Medicine; Visit Provider Urology
DX: Z01.818 Encounter for other preprocedural examination (principal); N21.0 Calculus in bladder; I10 Essential (primary) hypertension
CPT/HCPCS: 36415; 80048; 85610; 85730; 87077; 87086; 87088; 87186; 93005

== ENCOUNTER 2023-10-09 10:10 | Outpatient (CLI) | payer MEDICARE, SELFPAY ==
[2023-10-09 10:56] LABS: Prothrombin Time 13.7 Seconds (11.1-14.7)
== END 2023-10-09 10:11 | disposition home or self-care (01) ==
LOC: ANHSURGERY 10:15
PROVIDERS: PCP Family Medicine; Visit Provider Urology
DX: N20.0 Calculus of kidney (principal); Z01.818 Encounter for other preprocedural examination
CPT/HCPCS: 36415; 85610; 85730

== ENCOUNTER 2023-10-17 00:45 | Day surgery (SDC) | payer MEDICARE, SELFPAY ==
--- NOTE | 2023-09-12 11:32 | PC.NURSE ---
Report to the Outpatient Waiting Room, entrance under the green pavilion located off [facility], at time __1000 AM on date _09/19/23 . Planned Procedure Time: __1200 NOON . Time changes happen often and if your time is changed the preop area will call you the afternoon before. - You and your visitor will be asked to self-screen and do not enter if you have any COVID symptoms. - A mask is optional within the hospital at this time. Patients may have clear liquids (water, carbonated beverages, clear teas, apple juice) until 3 hours prior to surgery ( 9:00 AM)with a maximum of 20 ounces. - No food from midnight until time of surgery - Infants may have breast milk until 4 hours before surgery, formula 6 hours prior to surgery. - Children will be allowed to drink immediately following surgery. If applicable, please bring a bottle or sippy cup to assist with drinking. Juice, water, soda, and popsicles are readily available. For infants on formula, please bring formula the day of surgery. Pacifiers are allowed. Take the following medications with a SIP of water the morning of surgery: __SYMBICORT INHALER,AMLODIPINE,BUSPIRONE,ESCITALOPRAM,METOPROLOL DO NOT STOP ANY OF YOUR OTHER PRESCRIPTION MEDICATIONS PRIOR TO SURGERY ?EXCEPT THE FOLLOWING Medications to discontinue per physician ____HOLD ELIQUIS 3 DAYS PRE OP PER DR HENNESSY.LAST DOSE 09/15/23 Please no make-up, nail british, hairspray, perfume, deodorant, or body powder the day of surgery. No jewelry (including any body piercings) or valuables the day of surgery, leave them at home. Please take a shower or bath the night before, or the morning of, surgery with an antibacterial soap. Wear comfortable, loose fitting clothing. Children are encouraged to wear pajamas. - Jewelry must be removed prior to entering the operating room. Rings and piercings that are not removed may be cut off. - The hospital will not accept responsibility for valuables. - Please leave all valuables, including medications, at home the day of surgery. If you are going home after surgery, a licensed mobile lounge driver must drive you home. - NO public transportation without another adult if you receive anesthesia. - We recommend that an adult stay with you for 24 hours following discharge. - We also recommend that you do not drive, make important decision, drink alcoholic beverages, or take any drugs that were not prescribed by your health care provider for at least 24 hours after your discharge time. For Pediatric surgeries, we recommend two adults accompany the child home. Follow any additional instructions given to you from your surgeon. If you or anyone in your household have experienced Covid symptoms in the past week, please notify your surgeon or the nurse liaison at the phone number below for possible testing. Telephone instructions given to _WIFE TAMMY and asked if any additional questions and then verbalized understanding. Patient advised to call surgeon office or pre surgery nurse liaison [phone] if any additional questions.
[2023-09-12 12:37] VITALS: BMI 28.8
--- NOTE | 2023-10-07 14:53 | PC.NURSE ---
Report to the Outpatient Waiting Room, entrance under the green pavilion located off [facility], at time _0730_ on date _[id number]_. Planned Procedure Time: _0930_. Time changes happen often and if your time is changed the preop area will call you the afternoon before. - You and your visitor will be asked to self-screen and do not enter if you have any COVID symptoms. - A mask is optional within the hospital at this time. Patients may have clear liquids (water, carbonated beverages, clear teas, apple juice) until 3 hours prior to surgery with a maximum of 20 ounces. - No food from midnight until time of surgery Take the following medications with a SIP of water the morning of surgery: ___Symbicort, Amlodipine, Buspirone, Escitalopram and Metoprolol.___ DO NOT STOP ANY OF YOUR OTHER PRESCRIPTION MEDICATIONS PRIOR TO SURGERY ?EXCEPT THE FOLLOWING Medications to discontinue per physician ___Clopedegrel and Aspirin____ Date to take last dose___Hold as instructed by Dr Walker. Please no make-up, nail maori, hairspray, perfume, deodorant, or body powder the day of surgery. No jewelry (including any body piercings) or valuables the day of surgery, leave them at home. Please take a shower or bath the night before, or the morning of, surgery with an antibacterial soap. Wear comfortable, loose fitting clothing. - Jewelry must be removed prior to entering the operating room. Rings and piercings that are not removed may be cut off. - The hospital will not accept responsibility for valuables. - Please leave all valuables, including medications, at home the day of surgery. If you are going home after surgery, a licensed diesel truck driver must drive you home. - NO public transportation without another adult if you receive anesthesia. - We recommend that an adult stay with you for 24 hours following discharge. - We also recommend that you do not drive, make important decision, drink alcoholic beverages, or take any drugs that were not prescribed by your health care provider for at least 24 hours after your discharge time. Follow any additional instructions given to you from your surgeon. If you or anyone in your household have experienced Covid symptoms in the past week, please notify your surgeon or the nurse liaison at the phone number below for possible testing. Telephone instructions given to __James__and asked if any additional questions and then verbalized understanding. Patient advised to call surgeon office or pre surgery nurse liaison [phone] if any additional questions.
[2023-10-17] VITALS (8 sets, daily range): BP systolic 99–134; BP diastolic 54–81; PULSE 61–70; RESP 12–18; TEMP 36.3–36.6; O2SAT 96–98
--- NOTE | ~2023-10-17 | XR_ITS ---
EXAMINATION: XR abdomen/kub 1V DATE: 10/17/2023 07:51 INDICATION: Kidney stone. TECHNIQUE: A supine view of the abdomen on 2 radiographs was obtained. COMPARISON: Abdomen radiographs 06/03/2023, CT abdomen and pelvis 04/06/2022 FINDINGS: Surgical clips in the right upper quadrant are likely from cholecystectomy. There are adame es of posterior fusion procedure in lumbar spine. There is a total left hip arthroplasty. A catheter overlies the bladder. There are phleboliths in the pelvis. There is a 10 mm stone in right kidney. Th ere is a 3 mm stone in left kidney. IMPRESSION: 1. Bilateral kidney stones. Reviewed, dictated and finalized at location A. IMPRESSION: 1. Bilateral kidney stones.
--- NOTE | 2023-10-17 06:18 | WPDHPUPDATE1 ---
History and Physical Update Update Date/Time: 10/17/23 06:18 History and Physical has been reviewed, including an updated exam of the patient. There are NO changes in the patient's condition. Risks, benefits, and alternatives have been discussed and questions answered. Patient agrees to proceed with procedure.
[2023-10-17] MEDS: LACTATED RINGERS 1,000 ML 30 ML IV CONT (08:00)
--- NOTE | 2023-10-17 08:08 | WPDANESEPPF ---
Anes - Initial Pre Proc Eval Procedure: Operation Date: 10/17/23 08:30 Proposed Procedures p Right Extracorporeal Shock Wave Lithotripsy - Nikunj Walker MD s Cystoscopy, Holmium Laser Lithotripsy, Bladder Stone Extraction, Right Ureteral Stent Placement - Nikunj Walker MD Date/Time: 10/17/23 08:08 Surgeon: Nikunj Walker MD Pre Op Diagnosis: Bladder Stones, Right Renal Kidney Stone Patient Data Age: 83 Gender: M Height: 1.75 m Weight: 88.45 kg Allergies Allergy/AdvReac Type Severity Reaction Status Date / Time Penicillins Allergy Severe HIVES Verified 10/07/23 15:06 Home Medications Medication Instructions Recorded Confirmed Type buspirone 5 mg tablet 5 mg PO BID 04/10/22 10/07/23 History ezetimibe 10 mg tablet 10 mg PO HS 04/10/22 10/07/23 History potassium chloride 20 mEq 20 meq PO DAILY 04/10/22 10/07/23 History tablet,extended release(part/cryst) tamsulosin 0.4 mg capsule 0.4 mg PO BID 04/10/22 10/07/23 History albuterol sulfate 90 mcg/actuation 2 puff inhalation PRN PRN 03/07/23 10/07/23 History aerosol inhaler Shortness Of Breath amlodipine 5 mg tablet 5 mg PO DAILY 03/07/23 10/07/23 History finasteride 5 mg tablet 5 mg PO HS 03/07/23 10/07/23 History fluticasone propionate 50 2 spray intranasal PRN PRN Allergy 03/07/23 10/07/23 History mcg/actuation nasal Symptoms spray,suspension furosemide 20 mg tablet 40 mg PO DAILY 03/07/23 10/07/23 History metoprolol tartrate 50 mg tablet 50 mg PO BID 03/07/23 10/07/23 History ondansetron 4 mg disintegrating 4 mg PO PRN PRN Nausea 03/07/23 10/07/23 History tablet budesonide-formoterol HFA 160 2 puff inhalation BID 09/12/23 10/07/23 History mcg-4.5 mcg/actuation aerosol inhaler (Symbicort) escitalopram oxalate 10 mg tablet 10 mg PO DAILY 09/12/23 10/07/23 History aspirin 81 mg tablet 81 mg PO DAILY 10/07/23 10/07/23 History clopidogrel 75 mg tablet 75 mg PO DAILY 10/07/23 10/07/23 History Patient hx anesthesia problems: none Family hx anesthesia problems: none Results Review: All pre-operative results and documents have been reviewed as part of the pre-operative evaluation. [facility] Past Medical History Medical History Anxiety Atrial fibrillation CAD (coronary artery disease) CHF (congestive heart failure) Hyperlipidemia Hypertension CLAUDETTE (obstructive sleep apnea) Bipap Surgical History Surgical History History of coronary artery stent placement Social History Social History Smoking packs per day: 0.5 Smoking cigarettes per day: 10.0 Years smoked: 3 Smoking pack-years: 1.50 Smoking status: Former smoker Tobacco type: cigarettes Second hand tobacco smoke exposure: No Smoking end date: 03/10/74 Alcohol intake: current Drinks per week: 7 Substance use: never Substance use type: does not use Living arrangements: with family Spiritual care concerns: No Anes - Eval Final PreProcedure Day of Procedure 10/17/23 08:08 Patient weight: overweight Heart: regular rate and rhythm Lungs: decreased breath sounds Airway: Mallampati scale class II Neurological: alert and oriented Last oral intake: >/= 8 hours ASA classification: IV Emergent: no Anesthetic plan: proceed Anesthesia type and monitoring: general LMA and standard monitoring Results Review: All pre-operative results and documents have been reviewed as part of the pre-operative evaluation. Informed Consent: The patient's anesthetic plan and its attendant risks and benefits were discussed with the patient/family/POA. Questions were solicited and answers provided to the satisfaction of the patient/family/POA.
[2023-10-17] MEDS: ceFAZolin 2 GM/D5W 50 ML 2 GM/50 ML BAG IVPB (08:53)
--- NOTE | 2023-10-17 09:29 | W.PM.PROC2 ---
Procedure Note - Detailed Date of Procedure 10/17/23 Pre-op Diagnosis Bladder Stones, Right Renal Stone Post-op Diagnosis Same Procedure Performed Cystoscopy, laser lithotripsy bladder stone extraction, right ESWL Surgeon Nikunj Walker MD Anesthesia General Description of Procedure Patient is brought to the operative suite was prepped draped in routine sterile fashion while in dorsal lithotomy position after the uneventful induction of a general LMA anesthetic. Cystoscopy was undertaken with a 21 F rigid cystoscope. 0.035 in glidewire was advanced into his right renal pelvis under fluoroscopy and and 4.8 F variable length ureteral stent is positioned with the proximal coil in the renal pelvis and distal coil in the bladder. He has a 2 cm bladder stone which we fractured using a 1000 micron holmium laser fiber. All chips were evacuated with an [employer] evacuator. The focal point of the Lithotripter was then placed on his 10 mm right renal stone for a total of 2500 shocks were delivered at a power setting of 4. Patient tolerated procedure well was taken recovery in good condition Drains Yes Packing No Pathology Yes Complications No immediate complications
== END 2023-10-17 11:36 | disposition home or self-care (01) ==
PROVIDERS: PCP Family Medicine; Visit Provider Urology
PROC: (CPT 50590; principal; 2023-10-17 08:30)
PROC: (CPT 52352; 2023-10-17 08:30)
DX: N21.0 Calculus in bladder (principal); N20.0 Calculus of kidney; I48.91 Unspecified atrial fibrillation; I25.10 Atherosclerotic heart disease of native coronary artery without angina pectoris; I11.0 Hypertensive heart disease with heart failure; I50.9 Heart failure, unspecified; E78.5 Hyperlipidemia, unspecified; G47.33 Obstructive sleep apnea (adult) (pediatric); F41.9 Anxiety disorder, unspecified; Z95.5 Presence of coronary angioplasty implant and graft; Z87.891 Personal history of nicotine dependence; Z79.51 Long term (current) use of inhaled steroids; Z79.82 Long term (current) use of aspirin; Z79.02 Long term (current) use of antithrombotics/antiplatelets
CPT/HCPCS: 52317; 50590; 36415; 74018; 80048; 82365; 85610; 85730; 87077; 87086; 87088; 87186; 88300; 93005; C1769; C2617; J0690; J2371; J2405; J2704; J7120

== ENCOUNTER 2023-10-24 08:15 | Outpatient (CLI) | payer MEDICARE, SELFPAY ==
--- NOTE | ~2023-10-24 | XR_ITS ---
XR abdomen/kub 1V 10/24/2023 09:00 INDICATION: Right renal stones TECHNIQUE: KUB COMPARISON: Comparison to multiple prior studies sequentially, with oldest reviewed study dated 10/01. FINDINGS: Bowel gas pattern is normal. There is no evidence of free air, mass, organomegaly, ascites or obstruction.. There is a right internal ureteral stent in expected position. There are bilateral renal stones. Status post fusion at L2-L5. There is a left total hip arthroplasty. 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 The bones appear intact. There are in numerable calcified granulomas in the lung bases. IMPRESSION: 1: Bilateral nephrolithiasis. Right internal ureteral stent in expected position. Reviewed, dictated and finalized at location B. IMPRESSION: 1: Bilateral nephrolithiasis. Right internal ureteral stent in expected positio n.
== END 2023-10-24 08:16 | disposition home or self-care (01) ==
PROVIDERS: PCP Family Medicine; Visit Provider Urology
DX: N20.0 Calculus of kidney (principal)
CPT/HCPCS: 74018

== ENCOUNTER 2023-11-26 10:02 | Outpatient (CLI) | payer MEDICARE, SELFPAY ==
[2023-11-26 10:29] LABS: Basophils Percent Auto 0.3 % (0.2-1.2); Eosinophils Absolute Auto 0.1 K/mm3 (0-0.3); Eosinophils Percent Auto 0.8 % (0-4.4); Hematocrit 34.3 % (42.0-52.0); Hemoglobin 10.2 g/dL (14.0-18.0); Immature Granulocyte Absolute 0.04 K/mm3 (0.00-0.031); Immature Granulocyte Percent A 0.6 % (0-0.5); Lymphocytes Absolute Auto 1.67 K/mm3 (0.9-3.2); Lymphocytes Percent Auto 23.3 % (18.3-44.2); Mean Corpuscular HGB Conc 29.7 g/dl (32-36); Mean Corpuscular Hemoglobin 27.4 pg (26-34); Mean Corpuscular Volume 92.2 fl (80-100); Mean Platelet Volume 8.1 fl (7.4-10.4); Monocytes Absolute Auto 0.8 K/mm3 (0.1-0.6); Neutrophils Absolute Auto 4.6 K/mm3 (1.3-6.7); Platelet Count Result 193 k/mm3 (150-375); Red Blood Count 3.72 M/mm3 (4.6-6.20); Red Cell Distribution Width 14.8 % (11.5-14.5); White Blood Count 7.2 K/mm3 (4.5-10.0)
[2023-11-26 10:49] LABS: INR 1.1; Prothrombin Time 14.9 Seconds (11.1-14.7)
[2023-11-26 10:50] LABS: Partial Thromboplastin Time 27.4 Seconds (22.3-36.8)
[2023-11-26 11:12] LABS: Platelet Estimate Adequate (Adequate); Schistocytes None Seen
[2023-11-26 11:13] LABS: Anisocytosis 1+; Hypochromasia 1+
== END 2023-11-26 10:03 | disposition home or self-care (01) ==
PROVIDERS: PCP Family Medicine; Visit Provider Urology
DX: R31.9 Hematuria, unspecified (principal)
CPT/HCPCS: 36415; 85025; 85610; 85730

== ENCOUNTER 2024-03-24 10:53 | Outpatient (CLI) | payer MEDICARE, SELFPAY ==
--- NOTE | ~2024-03-24 | XR_ITS ---
XR abdomen/kub 1V Ordering provider: Nikunj Walker MD History: . Hematuria . Comparison: October 24, 2023 FINDINGS: BOWEL: Nonobstructive bowel gas pattern. ORGANOMEGALY: None. SIGNIFICANT PATHOLOGIC CALCIFICATIONS: Bilateral renal stones with multiple stones in the right kidne y and tiny stone in the left. Right double-J stent is removed in the interval. OTHER: No free air is seen under the diaphragm. Postoperative changes in the spine. Left hip arthropl asty. Severe right hip osteoarthritic changes. Bilateral lung granulomas. IMPRESSION: NO ACUTE ABDOMINAL FINDINGS. Bilateral kidney stones. Reviewed, dictated and finalized at location A. ICATION SUPPORT CONSULTANT
== END 2024-03-24 10:54 | disposition home or self-care (01) ==
PROVIDERS: PCP Family Medicine; Visit Provider Urology
DX: R31.0 Gross hematuria (principal); N20.0 Calculus of kidney
CPT/HCPCS: 74018

== ENCOUNTER 2024-05-04 10:55 | Outpatient (CLI) | payer MEDICARE, SELFPAY ==
[2024-05-04 11:37] LABS: Anion Gap 6 mmol/L (4-12); Blood Urea Nitrogen 26 mg/dL (9-20); Carbon Dioxide 26 mmol/L (22-30); Chloride 107 mmol/L (98-107); Estimated Glomerular Filt Rate 48; Glucose 84 mg/dL (65-110); Potassium 4.3 mmol/L (3.4-5.0); Sodium 139 mmol/L (137-145)
--- OUTSIDE RECORDS SUMMARY | 2024-05-04 12:59 | XMS_ITS | Referral Summary ---
Author Organization [facility] Address [address] [place] [address] Care Team Providers Care Director Of Collections And Archives Name Role Phone Marcus Pate MD Primary Care Provider [phone] Allergies Active Allergy Reactions Criticality Noted Date Comments Penicillin G Benzathine Unknown 05/05/2019 Medications tamsulosin (FLOMAX) 0.4 mg extended release capsule 04/26/2019 Active potassium chloride ER 20 mEq CR tablet 04/08/2019 Activ e isosorbide mononitrate ER (IMDUR) 30 mg 24 hr tablet 04/08/2019 Active furosemide (LASIX) 20 mg tablet 04/08/2019 Active clopidogreL (PLAVIX) 75 mg tablet 75 mg daily Active citalopram (CeleXA) 20 mg tablet 04/08/2019 Active atenoloL (TENORMIN) 25 mg tablet 04/08/2019 Active amLODIPine (NORVASC) 10 mg tablet 10 mg daily Active Active Problems No known active problems Social History Tobacco Use Types Packs/Day Years Used Date Smoking Tobacco: Former Alcohol Use Standard Drinks/Week Comments Yes 0 (1 standard drink = 0.6 oz pur e alcohol) Personal Safety Answer Date Recorded Getting School Help Needed Not on file 05/24 Sex and Gender Information Value Date Recorded Sex Assigned at Not on file 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 Gender Identity Not on file Sexual Orientation Not on file Occupation Industry Job Start Date Job End Date retired Not on file Not on file Not on file Last Filed Vital Signs Vital Sign Reading Time Taken Comments Blood Pressure 120/59 08/06/2018 10:22 AM CDT Pulse 81 08/06/2018 10:22 AM CDT Temperature 36.8 C (98.3 F) 08/06/2018 10:22 AM CDT Respiratory Rate - - Oxygen Saturation 98% 08/06/2018 10:22 AM CDT Inhaled Oxygen Concentration - - Weight 99.8 kg (220 lb) 05/05/2019 11:12 AM PIPE COVERER Height 175.3 cm (5' 9 ) 05/05/2019 11:12 AM PIPE COVERER Body Mass Index 32.49 05/05/2019 11: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
--- OUTSIDE RECORDS SUMMARY | 2024-05-04 12:59 | XMS_ITS | Patient Health Summary ---
Author Organization [facility] [employer] Address [address] [place] [address] Care Team Providers Care Superintendent Nonselling Name Role Phone Marcus Pate MD Primary Care Provider [phone] Marcus Pate MD Unavailable [phone] Alverto Harrington MD Unavailable [phone] Note from [facility],non-owned Affiliates and Associated Physician Practices is amultiple site organization consisting of ambulatory clinics and hospital sitesin [place], [place], [place] and [place]. This disclosure is being madepursuant to the Care Everywhere program and may not contain all information available regarding this patient. Last updated 17.[facility] Allergies * Penicillins(Urticaria) -Medium Criticality * Penicillins(Urticaria,Unknown) -Medium Criticality Medications * Be aware that medications may not be up to date on this document. Alwaysverify current medications with the patient. * amLODIPine (NORVASC) 5 MG tablet(Started 02/01/2019) Take 1 (one) tablet by mouth once daily * atenolol (TENORMIN) 25 MG tablet(Started 01/27/2019) Take 1 (one) tablet by mouth once daily * ezetimibe (ZETIA) 10 MG tablet(Started 02/18/2019) Take 1 (one) tablet by mouth at bedtime * senna-docusate (SENOKOT-S) 8.6-50 MG tablet(Started 08/18/2019) Take 1 tablet by mouth 2 times daily * tamsulosin (FLOMAX) 0.4 MG capsule(Started 08/18/2019) Take 1 capsule by mouth 2 times daily 3 refills by 08/17/2020 * HYDROcodone-acetaminophen (NORCO) 5-325 MG tablet(Started 09/03/2019) Take 1.5 tablets by mouth every 6 hours as needed for Pain * albuterol HFA (Proventil; Ventolin; Proair) 108 (90 Base) MCG/ACT inhaler (Started 02/06/2023) Inhale 2 (two) puffs by mouth every 6 hours as needed * budesonide-formoterol (Symbicort) 160-4.5 MCG/ACT inhaler(Started 03/18/2023) Inhale 2 (two) puffs by mouth 2 times daily * apixaban (Eliquis) 5 MG tablet * busPIRone (Buspar) 5 MG tablet Take 1 (one) tablet by mouth 3 times daily * metoprolol tartrate IR (Lopressor) 50 MG tablet Take 1 (one) tablet by mouth 2 times daily Active Problems Problem Noted Date Diagnosed Date Dyspnea on exertion 04/16/2023 CLAUDETTE (obstructive sleep apnea) 04/16/2023 Notalgia 08/17/2019 Social History Tobacco Use Types Packs/Day Years Used Date Smoking Tobacco: Former Smokeless Tobacco: Never Tobacco Cessation:Counseling Given: Not Answered Alcohol Use Standard Drinks/Week Comments Yes 0 (1 standard drink = 0.6 oz pur e alcohol) occ AUDIT-C Answer Date Recorded Q1: How often do you have a drink containing alc ohol? Monthly or less 05/15/2023 Average Number of Drinks Not on file 024 Frequency of Binge Drinking Not on file 09/2023 Sex and Gender Information Value Date Recorded Sex Assigned at Not on file Gender Identity Not on file Sexual Orientation Not on file Last Filed Vital Signs Vital Sign Reading Time Taken Comments Blood Pressure 140/83 05/15/2023 10:00 AM [facility] Pulse 66 05/15/2023 10:00 AM [employer] [employer] Temperature 36.6 C (97.8 F) 05/15/2023 10:07 AM [employer] [employer] Respiratory Rate 13 05/15/2023 10:00 AM [employer] [employer] Oxygen Saturation 100% 05/15/2023 10:00 AM [employer] Inhaled Oxygen Concentration - - Weight 90.3 kg (199 lb 1.6 oz) 05/15/2023 10:05 AM [employer] Height 175.3 cm (5' 9 ) 05/15/2023 10:05 AM [employer] [employer] Body Mass Index 29.4 05/15/2023 10:05 AM [facility] [employer] Medical Devices Implanted Type Area Eclectic Doctor Device Identifier Shelf Expiration Date Model / Serial / Lot Floseal Hemostatic Matrix Implanted:Qty: 1 on 08/17/2019 by Dennis Ann DO at [facility] Left: Spine Lumbar Encision 11/02/2020 [id number] / / [id number] Graft Bone I Fctr 2.5cc Algrf Ptty Syr Implanted:Qty: 1 on 08/17/2019 by Dennis Ann DO at [facility] Left: Spine Lumbar Cerapedics 05/07/2022 [id number] / / [id number] Floseal Hemostatic Matrix Implanted:Qty: 1 on 08/17/2019 by Dennis Ann DO at [facility] Left: Spine Lumbar [employer] 07/26/2020 [id number] / / [id number] Procedures * SIX MINUTE WALK(Performed 05/06/2023) Performed for Dyspnea on exertion * CT CHEST WO CONTRAST(Performed 05/06/2023) Performed for Dyspnea on exertion * PFT OXYGEN DESATURATION STUDY(Performed 05/06/2023) Performed for Dyspnea on exertion * COMPLETE PFT W/WO BRONCHODILATOR(Performed 05/06/2023) Performed for Dyspnea on exertion * RAD OUTSIDE IMG IMPORT(Performed 07/04/2020) Performed for Pain * PAIN MANAGEMENT PROCEDURE TIME(Performed 01/05/2020) Performed for Sacroiliitis, not elsewhere classified (HCC) * CBC W AUTO DIFFERENTIAL(Performed 08/27/2019) * COMPREHENSIVE METABOLIC PANEL(Performed 08/27/2019) * BLADDER SCAN - POINT OF CARE (AMB)(Performed 08/23/2019) Performed for Urinary retention * CARDIAC RHYTHM STRIP ORDER(Performed 08/19/2019) * FL MATTHIAS SURGERY(Performed 08/17/2019) Performed for Other chronic back pain * ARTERIAL LINE NOTE(Performed 08/17/2019) * DISCECTOMY LUMBAR MICROSCOPIC(Performed 08/17/2019) * EKG 12-LEAD(Performed 08/17/2019) Performed for Pre-op testing * BASIC METABOLIC PANEL (CALCIUM TOTAL)(Performed 08/17/2019) Performed for Pre-op testing * CBC W/O DIFFERENTIAL(Performed 08/17/2019) Performed for Pre-op testing * SARS-COV-2 (COVID-19) IN HOUSE(Performed 08/13/2019) Performed for Preop examination * RAD OUTSIDE IMG IMPORT(Performed 05/26/2019) Performed for Pain Results * Six Minute Walk Test [facility] (05/06/2023 4:28 PM P[employer]) Impressions Juan Francisco Hernandez MD - 05/06/2023 4:28 PM [employer] [facility] DEPARTMENT OF PULMONARY, CRITICAL CARE, AND SLEEP MEDICINE SIX MINUTE WALK TEST Robbi Oneill 05/06/2023 Interpretation: The patient walked for 6 minutes on room air(O2) and covered total distance of 45 meters. On the Bhaskar scale at baseline, reported dyspnea was 1 and fatigue was 0. At the end of the study, the Bhaskar reported dyspnea was 5 and fatigue was 7. There was SOB, lightheadedness reported and oxygen saturation remained at 100% throughout the test. IMPRESSION: 1. Total 6 minute walk distance is 45 meters, which is below the lower limit of normal of 239 meters for this patient. 2. There is no available study for comparison. Maria Victoria Wang DO Pulmonary & Critical Care Fellow I have reviewed the above study and agree with the interpretation as listed above. Juan Francisco Hernandez MD Manager Books of Pulmonary & Critical Care Medicine [facility] Pager [phone] Narrative Juan Francisco Hernandez MD - 05/06/2023 4:28 PM [employer] Maria Victoria Wang DO 05/06/2023 4:33 PM David Walls MD RESPIRATORY THE RAPY ORDERABLES * CT CHEST WO CONTRAST (05/06/2023 10:24 AM [employer] [employer]) Anatomical Region Laterality Modality Chest Computed Tomogra phy 05/06/2023 10:5 3 AM [employer] [employer] Impressions 05/06/2023 4:11 PM [employer] [employer] Impression: 1.Bilateral pleural effusions, moderate on the right and small on the left with adjacent atelectasis. 2.Partially imaged large right renal cyst, 9 mm calcification within the right kidney and a punctate nonobstructing calculi in the left kidney. > Dictated by Peter Hill MD (residential caregiver). > Dictated by Peter Hill MD (Resource Specialist Teacher) 05/06/2023 10:53 AM IEliceo MD have personally reviewed and interpreted this examination/study. > Interpreting Provider: Eliceo Cordova MD on 05/06/2023 4:11 PM Narrative 05/06/2023 4:11 PM [facility] [employer] PROCEDURE: CT CHEST WO CONTRAST, DATE/TIME OF EXAM: 05/06/2023 10:25 AM, LOCATION [facility] INDICATION: R06.09: Dyspnea on exertion COMPARISON: Report from a CT abdomen and pelvis from an outside hospital dated to 03/03/2023. TECHNIQUE: CT of the chest was performed without contrast according to standard protocol. Findings: Evaluation of visceral and vascular structures is degraded due to lack of intravenous contrast administration. Lower Neck and Axillae: Normal. Lungs: There is mild scarring at the lung apices. No suspicious pulmonary nodules are identified. Moderate right and small left layering pleural effusions with adjacent atelectasis of the inferior lobes. Innumerable punctate calcified granulomas are seen throughout both lungs. Heart and Pericardium: Cardiomegaly without pericardial fluid or thickening. An artificial aortic valve, multiple coronary stents are seen. Dual-lead pacemaker with leads terminating in the right atrium and right ventricle. There is coronary artery calcification Mediastinum and Anu: No enlarged lymph nodes are present. Calcified lymph nodes are present in the bilateral hilum and mediastinum. Thoracic Vasculature: The aorta and its branch vessels are atherosclerotic. Bones and Chest Wall: Bone windows demonstrate no suspicious lytic or blastic lesions. The visible osseous structures are intact. Degenerative changes are seen in the spine. Partially visualized posterior lumbar spinal fusion. Upper Abdomen: Partially imaged large exophytic cyst which arises from the right kidney. In the partially imaged kidneys, there is a 9 mm calcification within the interpolar region of the right kidney (which may represent vascular calcification versus nephrolithiasis) and a punctate calculi in the left interpolar region. Cholecystectomy. Punctate granulomas are seen diffusely throughout the spleen. Extensive atherosclerotic calcification of the partially imaged abdominal aorta and its branch vessels. Small hiatal hernia. Procedure Note Eliceo Cordova MD - 05/06/2023 PROCEDURE: CT CHEST WO CONTRAST, DATE/TIME OF EXAM: 05/06/2023 10:25AM, LOCATION [facility] INDICATION: R06.09: Dyspnea on exertion COMPARISON: Report from a CT abdomen and pelvis from an outside hospital dated to 03/03/2023. TECHNIQUE: CT of the chest was performed without contrast according to standard protocol. Findings: Evaluation of visceral and vascular structures is degraded due to lackof intravenous contrast administration. Lower Neck and Axillae: Normal. Lungs: There is mild scarring at the lung apices. No suspicious pulmonarynodules are identified. Moderate right and small left layering pleural effusions with adjacent atelectasis of the inferior lobes. Innumerable punctate calcified granulomas are seen throughout both lungs. Heart and Pericardium: Cardiomegaly without pericardial fluid or thickening. An artificialaortic valve, multiple coronary stents are seen. Dual-lead pacemaker with leads terminating in the right atrium and right ventricle. There is coronary artery calcification Mediastinum and Anu: No enlarged lymph nodes are present. Calcified lymph nodes are presentin the bilateral hilum and mediastinum. Thoracic Vasculature: The aorta and its branch vessels are atherosclerotic. Bones and Chest Wall: Bone windows demonstrate no suspicious lytic or blastic lesions. The visible osseous structures are intact. Degenerative changes are seen inthe spine. Partially visualized posterior lumbar spinal fusion. Upper Abdomen: Partially imaged large exophytic cyst which arises from the rightkidney. In the partially imaged kidneys, there is a 9 mm calcification withinthe interpolar region of the right kidney (which may represent vascular calcification versus nephrolithiasis) and a punctate calculi in the left interpolar region. Cholecystectomy. Punctate granulomas are seen diffusely throughout the spleen. Extensive atherosclerotic calcification of the partially imagedabdominal aorta and its branch vessels. Small hiatal hernia. Impression: 1.Bilateral pleural effusions, moderate on the right and small on theleft with adjacent atelectasis. 2.Partially imaged large right renal cyst, 9 mm calcification within the right kidney and a punctate nonobstructing calculi in the left kidney. > Dictated by Peter Hill MD (residential caregiver). > Dictated by Peter Hill MD (Resource Specialist Teacher) 05/06/2023 10:53 AM I, Eliceo Cordova MD have personally reviewed and interpreted this examination/study. > Interpreting Provider: Eliceo Cordova MD on 05/06/2023 4:11 PM [address]s MD CT ORDERABLES * PFT Oxygen Desaturation Study [facility] (05/06/2023 10:13 AM [employer] [employer]) Impressions Juan Francisco Hernandez MD - 05/06/2023 10:13 AM [employer]ER [facility] DEPARTMENT OF PULMONARY, CRITICAL CARE, AND SLEEP MEDICINE OXYGEN TITRATION STUDY Robbi Victorkameron 05/07/2023 INTERPRETATION The test was performed via free walk. Patient only completed 2 minutes due to shortness of breath and lightheadedness. Saturations remained above 94%94 IMPRESSION - Patient only completed 2 minutes of free walk - At the above level of activity the patient's oxygen saturation remained 94 % and above on room air. Maria Victoria Wang DO Pulmonary/Critical Care Medicine Fellow I have reviewed the above study and agree with the interpretation as listed above. Juan Francisco Hernandez MD Manager Books of Pulmonary & Critical Care Medicine [facility] Pager [phone] Narrative Juan Francisco Hernandez MD - 05/06/2023 10:13 AM [employer] Maria Victoria Wang DO 05/07/2023 7:09 AM David Walls MD PFT ORDERABLES * COMPLETE PFT W/WO BRONCHODILATOR (05/06/2023 10:13 AM [employer]) Impressions Juan Francisco Hernandez MD - 05/06/2023 10:13 AM [employer]ER [facility] DEPARTMENT OF PULMONARY, CRITICAL CARE, AND SLEEP MEDICINE PULMONARY FUNCTION TEST Please see technologist's comments mentioned in the report. INTERPRETATION: SPIROMETRY: FVC: decreased FEV1: decreased FEV1/FVC ratio is normal. BRONCHODILATOR RESPONSE: There is no significant response to bronchodilator therapy however does not mean the patient would not benefit from bronchodilator therapy FLOW-VOLUME LOOPS: Normal flow-volume loops LUNG VOLUMES: Lung volumes are decreased DLCO: Unadjusted for Hb and COHb is decreased DLCO: Corrected for Hb and COHb is decreased IMPRESSION: - Mild restrictive ventilatory limitation - There is mildly decreased adjusted DLCO - No significant positive bronchodilator response, however this does not preclude the use of bronchodilators - There is no previous study available for comparison Maria Victoria Wang DO Pulmonary/Critical Care Medicine Fellow I have reviewed the above study and agree with the interpretation as listed above. Juan Francisco Hernandez MD Manager Books of Pulmonary & Critical Care Medicine [facility] Pager [phone] Narrative Juan Francisco Hernandez MD - 05/06/2023 10:13 AM [employer]ER Maria Victoria Wang DO 05/07/2023 7:09 AM David Walls MD RESPIRATORY THE RAPY ORDERABLES * RAD OUTSIDE IMG IMPORT (07/04/2020 7:41 AM CDT) Only the most recent of2 resultswithin the time period is included. Dennis Ann DO DIAGNOSTIC IMAGING O RDERABLES [facility] [address] [place] [address] * PAIN MANAGEMENT PROCEDURE TIME (01/05/2020 10:14 AM CDT) Anatomical Region Laterality Modality X-Ray Angiograph y Narrative 01/05/2020 10:22 AM CDT Alex Evans MD 01/05/2020 10:22 AM [facility] Fluoroscopically Guided Left Sacroiliac Joint Injection The patient was identified in the holding area and the operative permit was explained and signed. I have discussed with the patient the risks, benefits, side effects and complications of a fluoroscopically guided sacroiliac joint injection. I have answered the patient's questions regarding the procedure and have given the patient the opportunity to refuse the procedure. I have discussed the possibility of delayed weakness in the leg and have encouraged the patient to exercise caution. I also have discussed alternative methods of treatment. The patient stated understanding of the procedure and wished to proceed with a fluoroscopically guided sacroiliac joint injection. The patient was taken to the fluoroscopic suite and placed on a C-arm table in the prone position with the appropriate monitors applied. A nurse was in attendance for the duration of the procedure to carefully monitor the patient. Please refer to the nursing record for vital sign documentation and for any doses of sedatives and medications. I was present and gave the order for any medications given to the patient. This procedure was performed on the sacroiliac joint on the Left. The lumbosacral region of the back overlying the sacroiliac joint was prepped and draped in the usual sterile fashion. Using fluoroscopic guidance, the sacroiliac joint was visualized in the AP oblique direction. A 22 gauge, 3.5-inch needle was placed in the inferior aspect of the sacroiliac joint. Next 1 cc of Isovue M 200 was injected and intra-articular spread was confirmed under direct fluoroscopy. There was no evidence of intravascular or epidural spread. A preservative free mixture of 3 cc of 0.25% Bupivacaine and 80 mg of DepoMedrol (80 mg/cc) was injected into the Left sacroiliac joint. The needle was removed intact. The patient tolerated the procedure well and there were no complications. The patient was taken to the recovery area. The patient remained in stable condition with no apparent complications. Post procedure instructions were given to the patient and a follow up appointment was confirmed. The patient was also discharged with information on how to reach the clinic or crew person physician at anytime for questions or complaints. Estimated blood loss during procedure 0 ml. Alex Evans MD DIAGNOSTIC IMAGIN G ORDERABLES * (ABNORMAL) CBC W AUTO DIFFERENTIAL (08/27/2019 2:06 PM CDT) WBC 7.5 4.4 - 10.7 x10E9/L 08/27/2019 2:19 PM CDT [facility] WBC Corrected 08/27/2019 2:19 PM CDT [facility] RBC 3.96 3.80 - 5.40 x10E12/L 08/27/2019 2:19 PM CDT [facility] Hemoglobin 12.8 12.0 - 17.6 gm/dL 08/27/2019 2:19 PM CDT [facility] Hematocrit 38.5 35.2 - 51.7 % 08/27/2019 2:19 PM CDT [facility] MCV 97.2 80.7 - 98.3 fl 08/27/2019 2:19 PM [facility] MCH 32.3 26.7 - 34.0 pg 08/27/2019 2:19 PM [facility] MCHC 33.2 30.8 - 35.9 gm/dL 08/27/2019 2:19 PM [facility] Platelet Count 213 153 - 416 x10E9/L 08/27/2019 2:19 PM [facility] RDW-CV 12.5 12.1 - 14.9 % 08/27/2019 2:19 PM [facility] MPV 8.8(L) 9.4 - 12.9 fl 08/27/2019 2:19 PM [facility] Neutrophils % 74.5(H) 44.0 - 73.0 % 08/27/2019 2:19 PM [facility] Lymphocytes % 10.5(L) 20.0 - 43.0 % 08/27/2019 2:19 PM [facility] Monocytes % 10.5 5.0 - 13.0 % 08/27/2019 2:19 PM [facility] Eosinophils % 3.2 0.0 - 6.0 % 08/27/2019 2:19 PM [facility] Basophils % 0.4 0.0 - 2.0 % 08/27/2019 2:19 PM [facility] Immature Granulocytes 0.9 0 - 1 % 08/27/2019 2:19 PM [facility] Neutrophil Absolute 5.60 2.01 - 7.14 x10E9/L 08/27/2019 2:19 PM [facility] Lymphocytes Absolute 0.79(L) 1.07 - 3.94 x10E9/L 08/27/2019 2:19 PM [facility] Monocytes Absolute 0.79 0.26 - 1.07 x10E9/L 08/27/2019 2:19 PM [facility] Eosinophils Absolute 0.24 0 - 0.47 x10E9/L 08/27/2019 2:19 PM [facility] Basophils Absolute 0.03 0 - 0.08 x10E9/L 08/27/2019 2:19 PM [facility] Immature Granulocytes Absolute 0.07(H) 0.00 - 0.06 x10E9/L 08/27/2019 2:19 PM CDT [facility] nRBC Auto 0 /100 WBC 08/27/2019 2:19 PM CDT [facility] Blood BLOOD SPECIMEN / Unknown Venipuncture / Unknown 08/27/2019 2:06 PM CDT 08/27/2019 2:15 PM CDT Lester Beauchamp MD LAB - HEMATOLOGY ORD ERABLES [facility] [address] [place] [address] * (ABNORMAL) COMPREHENSIVE METABOLIC PANEL (08/27/2019 2:06 PM CDT) Glucose 85 70 - 105 mg/dL 08/27/2019 2:37 PM T [facility] Sodium 140 136 - 145 mmol/L 08/27/2019 2:37 PM [facility] Potassium 4.6 3.5 - 5.1 mmol/L 08/27/2019 2:37 PM [facility] Chloride 106 98 - 107 mmol/L 08/27/2019 2:37 PM CDT [facility] CO2 26 23 - 31 mmol/L 08/27/2019 2:37 PM CDT [facility] Calcium 8.9 8.4 - 10.4 mg/dL 08/27/2019 2:37 PM [facility] Anion Gap 8 8 - 16 mmol/L 08/27/2019 2:37 PM [facility] BUN 26(H) 8.4 - 25.7 mg/dL 08/27/2019 2:37 PM T [facility] Creatinine 0.96 0.72 - 1.25 mg/dL 08/27/2019 2:37 PM T [facility] Alkaline Phosphatase 108 40 - 150 U/L 08/27/2019 2:37 PM CDT [facility] ALT 22 0 - 61 U/L 08/27/2019 2:37 PM T [facility] AST 17 5 - 34 U/L 08/27/2019 2:37 PM [facility] Protein Total 6.0(L) 6.4 - 8.3 gm/dL 08/27/2019 2:37 PM [facility] Albumin 3.9 3.2 - 4.6 gm/dL 08/27/2019 2:37 PM CDT [facility] Bilirubin Total 0.8 0.2 - 1.2 mg/dL 08/27/2019 2:37 PM CDT [facility] eGFR by MDRD >60 mL/min/1.7 3m2 08/27/2019 2:37 PM CDT [facility] eGFR by MDRD >60 mL/min/1.7 3m2 08/27/2019 2:37 PM CDT [facility] Blood BLOOD SPECIMEN / Unknown Venipuncture / Unknown 08/27/2019 2:06 PM CDT 08/27/2019 2:15 PM CDT Lester Beauchamp MD LAB - CHEMISTRY ARASH FUENTES Performing Organization Address City/[facility]/ZIP Co de Phone Number [facility] [address] [address] * BLADDER SCAN - POINT OF CARE (AMB) (08/23/2019) mL 0 Urine URINE / Unknown 08/23/2019 Mj Michael MD LAB - POINT OF CARE ORDERABLES * CARDIAC RHYTHM STRIP ORDER (08/19/2019 8:07 PM CDT) Narrative 08/19/2019 8:07 PM CDT Ordered by an unspecified provider. Scanned Document CARDIAC SERVICES ORD ERABLES * FL MATTHIAS SURGERY (08/17/2019 8:24 AM CDT) Narrative [facility] - 08/17/2019 10:16 AM CDT For details of this study, please see the providers note. Dennis Ann DO FLUOROSCOPY ORDERABL ES [facility] [address] [address] * ARTERIAL LINE PERFORMABLE (08/17/2019 8:09 AM CDT) Narrative Tracy Moscoso APRN-CRNA - 08/17/2019 8:09 AM CDT Tracy Moscoso APRN-CRNA 08/17/2019 8:10 AM Arterial Line Placement Procedure Note Patient Location: [place]. Procedure: Arterial Line ([id number]). Procedure Section Indications: continuous blood pressure monitoring. Consent: a time out was performed for patient safety. Skin Prep: Chloraprep. Location: left radial. Sterile Technique: small sterile fenestrated drape, sterile gloves, mask and cap. Local Anesthetic Used? No Gauge: 20. Seldinger Technique Used? No Number of Attempts: 2. Line Secured with: tape and Tegaderm. Procedure Tolerance: tolerated well. Events: none. Staff Section Anesthesia Provider: Wally Perkins MD, Performed the procedure Wally Perkins MD GENERAL ANESTH ESIA ORDERABLES * EKG 12-LEAD (08/17/2019 7:00 AM CDT) Ventricular Rate 61 BPM [facility] Atrial Rate 61 BPM [facility] P-R Interval 162 ms [facility] QRS Duration ms 90 ms [facility] Q-T Interval ms 434 ms [facility] QTC Calculation (Bezet) 436 ms [facility] Calculated P [place] 19 degrees [facility] Calculated R [place] 0 degrees [facility] Calculated T [place] -24 degrees [facility] Interpretation EKG Normal sinus rhythm Cannot rule out Anterior infarct , age undetermined Nonspecific T wave abnormality Abnormal ECG No previous ECGs available Confirmed by Arsh Trevino ([id number]) on 08/18/2019 8:25:59 AM [facility] 08/17/2019 7:00 AM CDT 08/18/2019 8:25 AM CDT Wally Perkins MD ECG ORDERABLES [facility] * (ABNORMAL) CBC W/O DIFFERENTIAL (08/17/2019 6:55 AM CDT) WBC 5.5 4.4 - 10.7 x10E9/L 08/17/2019 7:00 AM CDT [facility] RBC 4.21 3.80 - 5.40 x10E12/L 08/17/2019 7:00 AM CDT [facility] Hemoglobin 13.5 12.0 - 17.6 gm/dL 08/17/2019 7:00 AM CDT [facility] Hematocrit 40.6 35.2 - 51.7 % 08/17/2019 7:00 AM CDT [facility] MCV 96.4 80.7 - 98.3 fl 08/17/2019 7:00 AM CDT [facility] MCH 32.1 26.7 - 34.0 pg 08/17/2019 7:00 AM CDT [facility] MCHC 33.3 30.8 - 35.9 gm/dL 08/17/2019 7:00 AM [facility] Platelet Count 182 153 - 416 x10E9/L 08/17/2019 7:00 AM [facility] RDW-CV 12.9 12.1 - 14.9 % 08/17/2019 7:00 AM [facility] MPV 8.9(L) 9.4 - 12.9 fl 08/17/2019 7:00 AM [facility] Blood BLOOD SPECIMEN / Unknown Venipuncture / Unknown 08/17/2019 6:55 AM CDT 08/17/2019 6:57 AM CDT Wally Perkins MD LAB - HEMATOLO GY ORDERABLES [facility] [address] [place] [address] * BASIC METABOLIC PANEL (CALCIUM TOTAL) (08/17/2019 6:55 AM CDT) Glucose 103 70 - 105 mg/dL 08/17/2019 7:21 AM [facility] Sodium 139 136 - 145 mmol/L 08/17/2019 7:21 AM T [facility] Potassium 4.7 3.5 - 5.1 mmol/L 08/17/2019 7:21 AM [facility] Chloride 106 98 - 107 mmol/L 08/17/2019 7:21 AM T [facility] CO2 25 23 - 31 mmol/L 08/17/2019 7:21 AM CDT [facility] Calcium 8.9 8.4 - 10.4 mg/dL 08/17/2019 7:21 AM CDT [facility] Anion Gap 8 8 - 16 mmol/L 08/17/2019 7:21 AM CDT [facility] BUN 19 8.4 - 25.7 mg/dL 08/17/2019 7:21 AM CDT [facility] Creatinine 0.99 0.72 - 1.25 mg/dL 08/17/2019 7:21 AM CDT [facility] eGFR by MDRD >60 mL/min/1.7 3m2 08/17/2019 7:21 AM CDT [facility] eGFR by MDRD >60 mL/min/1.7 3m2 08/17/2019 7:21 AM CDT [facility] Blood BLOOD SPECIMEN / Unknown Venipuncture / Unknown 08/17/2019 6:55 AM CDT 08/17/2019 6:57 AM CDT Wally Perkins MD LAB - CHEMISTR Y ORDERABLES [facility] [address] [place] [address] * SARS-COV-2 (COVID-19) IN HOUSE (08/13/2019 11:20 AM CDT) COVID-19 PCR Not detected Not detected, Invalid 08/14/2019 2:12 AM CDT [facility] Microbiology SPECIMEN FROM NASOPHARYNGEAL STRUCTURE / Unknown Collection / Unknown 08/13/2019 11:20 AM CDT 08/13/2019 3:01 PM CDT Narrative [facility] - 08/14/2019 2:12 AM CDT This Real Time RT-PCR assay was developed and its performance characteristics determined by [facility]. This test has been authorized by the Food and Drug administration (FDA)under an Emergency Use Authorization (EUA). This test has been validated in accordance with the FDA's guidance document Policy for Diagnostic Testing in Laboratories Certified to perform High Complexity Testing under CLIA prior to Emergency Use Authorization for Coronavirus Disease-2019 during the Public Health Emergency issued on May 08, 2019. FDA independent review of this validation is pending. This test is only authorized for the duration of time the declaration that circumstances exist justifying the authorization of emergency use of in vitro diagnostic tests for detection of SARS-CoV-2 virus and/or diagnosis of COVID-19 infection under section 564(b)(1) of the Act, 21 U.S.C 360bbb-3 (b)(1), unless the authorization is terminated or revoked sooner. Dennis Ann DO LAB - MICROBIOLOGY O RDERABLES [facility] [address] [place], [address] [phone] Care Teams Superintendent Nonselling Relationship Specialty Start Date End Date Marcus Pate MD PCP - General 08/24/19 Marcus Pate MD Family Medicine 08/24/19 Alverto Harrington MD Gunner'S Mate G Cardiology 05/25/19
--- OUTSIDE RECORDS SUMMARY | 2024-05-04 12:59 | XMS_ITS | Clinical Summary ---
Author Organization [facility] Address [address] [place] [address] Care Team Providers Care Physician Coding Specialist Name Role Phone Marcus Pate MD Primary Care Provider [phone] Marcus Pate MD Unavailable [phone] Alverto Harrington MD Unavailable [phone] Source Comments [facility],non-owned Affiliates and Associated Physician Practices is amultiple site organization consisting of ambulatory clinics and hospital sitesin [place], [place], [place] and [place]. This disclosure is being madepursuant to the Care Everywhere program and may not contain all information available regarding this patient. Last updated 17.[facility] Allergies Active Allergy Reactions Criticality Noted Date Comments Penicillins Urticaria Medium 08/27/2019 Penicillins Urticaria,Unknown Medium 10/14/2015 Medications * Be aware that medications may not be up to date on this document. Alwaysverify current medications with the patient. Medication Sig Dispensed Refills Start Date End Date Status amLODIPine (NORVASC) 5 MG tablet Take 1 (one) tablet by mouth once daily 02/01/2019 Active atenolol (TENORMIN) 25 MG tablet Take 1 (one) tablet by mouth once daily 01/27/2019 Active ezetimibe (ZETIA) 10 MG tablet Take 1 (one) tablet by mouth at bedtime 02/18/2019 Active senna-docusate (SENOKOT-S) 8.6-50 MG tablet Take 1 tablet by mouth 2 times daily 30 tablet 08/18/2019 Active Additional Information Patient not taking.Reported on 05/15/2023 tamsulosin (FLOMAX) 0.4 MG capsule Take 1 capsule by mouth 2 times daily 60 capsule 3 08/18/2019 Active HYDROcodone-acetam inophen (NORCO) 5-325 MG tablet Take 1.5 tablets by mouth every 6 hours as needed for Pain 60 tablet 09/03/2019 Active albuterol HFA (Proventil; Ventolin; Proair) 108 (90 Base) MCG/ACT inhaler Inhale 2 (two) puffs by mouth every 6 hours as needed 02/06/2023 Active budesonide-formote rol (Symbicort) 160-4.5 MCG/ACT inhaler Inhale 2 (two) puffs by mouth 2 times daily 03/18/2023 Active apixaban (Eliquis) 5 MG tablet Active busPIRone (Buspar) 5 MG tablet Take 1 (one) tablet by mouth 3 times daily Active metoprolol tartrate IR (Lopressor) 50 MG tablet Take 1 (one) tablet by mouth 2 times daily Active Active Problems Problem Noted Date Diagnosed Date Dyspnea on exertion 04/16/2023 CLAUDETTE (obstructive sleep apnea) 04/16/2023 Notalgia 08/17/2019 Family History Medical History Relation Name Comments Other - Cardiac Father Cancer - Other Mother Relation Name Status Comments Father Mother Social History Tobacco Use Types Packs/Day Years [...] Comments Blood Pressure 140/83 05/15/2023 10:00 AM MEN'S GOLF COACH Pulse 66 05/15/2023 10:00 AM MEN'S GOLF COACH Temperature 36.6 C (97.8 F) 05/15/2023 10:07 AM MEN'S GOLF COACH Respiratory Rate 13 05/15/2023 10:00 AM MEN'S GOLF COACH Oxygen Saturation 100% 05/15/2023 10:00 AM MEN'S GOLF COACH Inhaled Oxygen Concentration - - Weight 90.3 kg (199 lb 1.6 oz) 05/15/2023 10:05 AM MEN'S GOLF COACH Height 175.3 cm (5' 9 ) 05/15/2023 10:05 AM MEN'S GOLF COACH Body Mass Index 29.4 05/15/2023 10:05 AM MEN'S GOLF COACH Plan of Treatment Health Maintenance Due Date Last Done Comments DTAP/TDAP/TD VACCINES (1 - Tdap) 1957 PNEUMOCOCCAL VACCINE 50+ (1 of 1 - PCV) 01/22/1988 ZOSTER VACCINE (1 of 2) 01/22/1988 Respiratory Syncytial Virus (RSV) Vaccine Pt: or over 60 yrs (1 - 1-dose 75+ series) 2013 COVID-19 VACCINE ( season) 2023 03/11/2021, 05/12/2020, 04/14/2020 INFLUENZA VACCINE (#1) 2023 , 01/20/2020, 01/05/2019, Additional history exists DEPRESSION SCREENING 03/10/2024 MEDICARE AWV CALENDAR YEAR 2024 HEPATITIS B VACCINE Aged Out No longe r eligible based on patient's age to complete this topic HIB VACCINE Aged Out No longer eligi ble based on patient's age to complete this topic HPV VACCINE Aged Out No longer eligi ble based on patient's age to complete this topic MENINGOCOCCAL (Group B) VACCINE Aged Out No longer eligible based on patient's age to complete this topic MENINGOCOCCAL VACCINE Aged Out No ophelia dinora eligible based on patient's age to complete this topic Medical Devices Implanted Type Area Senior Chemical Process Engineer Device Identifier Shelf Expiration Date Model / Serial / Lot Floseal Hemostatic Matrix Implanted:Qty: 1 on 08/17/2019 by Dennis Ann DO at [facility] Left: Spine Lumbar [employer] 11/02/2020 [id number] / / [id number] Graft Bone I Fctr 2.5cc Algrf Ptty Syr Implanted:Qty: 1 on 08/17/2019 by Dennis Ann DO at [facility] Left: Spine Lumbar [employer] 05/07/2022 [id number] / / [id number] Floseal Hemostatic Matrix Implanted:Qty: 1 on 08/17/2019 by Dennis Ann DO at [facility] Left: Spine Lumbar [employer] 07/26/2020 [id number] / / [id number] Advance Directives * Full Code (Latest Code Status on File) Date Activated Date Inactivated Comments 08/17/2019 11:45 AM 08/18/2019 3:43 PM Care Teams Physician Coding Specialist Relationship Specialty Start Date End Date Marcus Pate MD PCP - General 08/24/19 Marcus Pate MD Family Medicine 08/24/19 Alverto Harrington MD Forklift Supervisor Cardiology 05/25/19
--- OUTSIDE RECORDS SUMMARY | 2024-05-04 12:59 | XMS_ITS | Clinical Summary ---
Author Organization [facility] Address [address] [place] [address] Care Team Providers Care Material Loader Name Role Phone Marcus Pate MD Primary Care Provider [phone] Allergies Active Allergy Reactions Criticality Noted Date [...] Active Active Problems No known active problems Surgical History Surgery Date Site/Laterality Comments JOINT REPLACEMENT KNEE SURGERY Left APPENDECTOMY CHOLECYSTECTOMY CARDIAC CATHETERIZATION Medical History Medical History Date Comments Depression Gout Hypertension Hypercholesteremia Kidney stone Osteoarthritis Family History Medical History Relation Name Comments Arthritis Father Cancer Father Heart disease Father Arthritis Mother Cancer Mother Relation Name Status Comments Father Mother [...] on file Legal Sex Male 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 Gender Identity Not on file Sexual Orientation Not on file Occupation Industry Job Start Date Job End Date retired Not on file Not on file Not on file Obstetrics History Last Filed Vital Signs Vital Sign Reading Time Taken Comments Blood Pressure 120/59 08/06/2018 10:22 AM CDT Pulse 81 08/06/2018 10:22 AM CDT Temperature 36.8 C (98.3 F) 08/06/2018 10:22 AM CDT Respiratory Rate - - Oxygen Saturation 98% 08/06/2018 10:22 AM CDT Inhaled Oxygen Concentration - - Weight 99.8 kg (220 lb) 05/05/2019 11:12 AM ZIGZAG MACHINE OPERATOR Height 175.3 cm (5' 9 ) 05/05/2019 11:12 AM ZIGZAG MACHINE OPERATOR Body Mass Index 32.49 05/05/2019 11:12 AM ZIGZAG MACHINE OPERATOR Plan of Treatment Not on file Insurance [facility] MDCR HMO [facility] MEDIC[facility] Address: [facility] [address] [place] [address] Care Teams Material Loader Relationship Specialty Start Date End Date Marcus Pate MD PCP - General 07/22/18
--- OUTSIDE RECORDS SUMMARY | 2024-05-04 12:59 | XMS_ITS | Clinical Summary ---
Author Organization [facility] Address [address] [place] [address] Phone Care Team Providers Care Registered Nurse Maternity Name Role Phone Marcus Pate MD Primary Care Provider [phone] Henrry Max DO Unavailable [phone] Allergies Active Allergy Reactions Criticality Noted Date Comments Penicillins Hives,Unknown Medium 10/14/2015 Per patient he can tolerate Amoxicillin Medications albuterol 108 (90 Base) MCG/ACT Aerosol Solution take 2 Puffs by inhalation. 02/06/2023 Active amLODIPine (NORVASC) 10 MG Tablet 10 mg. Active atenolol (TENORMIN) 25 MG Tablet Take 25 mg by mouth. 01/27/2019 Active budesonide-form oterol fumarate (SYMBICORT) 160-4.5 MCG/ACT Aerosol take 2 Puffs by inhalation. 03/18/2023 Active busPIRone (BUSPAR) 5 MG Tablet Take 7.5 mg by mouth. 04/22/2023 Active celecoxib (CeleBREX) 200 MG Capsule Take 1 Capsule by mouth daily. 08/25/2019 Active citalopram (CeleXA) 20 MG Tablet Take 20 mg by mouth. 02/15/2019 Active escitalopram (LEXAPRO) 10 MG Tablet 03/18/2023 Active ezetimibe (ZETIA) 10 MG Tablet Take 1 Tablet by mouth nightly. 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 Iron deficiency 04/29/2023 Family History Relation Name Status Comments Brother Alive Father Mother Sister Alive Social History Tobacco Use Types Packs/Day Years Used Date Smoking Tobacco: Former Cigarettes Smokeless Tobacco: Never Alcohol Use Standard Drinks/Week Comments Yes 0 (1 standard drink = 0.6 oz pur e alcohol) Comments Unknown Sex and Gender Information Value Date Recorded Sex Assigned at Not on file Legal Sex Female 2:45 PM FACILITIES MAINTENANCE ASSISTANT Gender Identity Not on file Sexual Orientation Not on file Last Filed Vital Signs Vital Sign Reading Time Taken Comments Blood Pressure 120/76 04/23/2023 12:10 PM FACILITIES MAINTENANCE ASSISTANT Pulse 79 04/23/2023 12:10 PM FACILITIES MAINTENANCE ASSISTANT Temperature 36.7 C (98 F) 04/23/2023 12:10 PM FACILITIES MAINTENANCE ASSISTANT Respiratory Rate - - Oxygen Saturation 99% 04/23/2023 12:10 PM FACILITIES MAINTENANCE ASSISTANT Inhaled Oxygen Concentration - - Weight 90.7 kg (200 lb) 04/23/2023 12:10 PM FACILITIES MAINTENANCE ASSISTANT Height 175.3 cm (5' 9 ) 04/23/2023 12:10 PM FACILITIES MAINTENANCE ASSISTANT Body Mass Index 29.53 04/23/2023 12:10 PM FACILITIES MAINTENANCE ASSISTANT Plan of Treatment Health Maintenance Due Date Last Done Comments DEXA Bone Density 1940 Hepatitis C Virus (HCV) Screening 1940 Zoster Immunization (1 of 2) 01/22/1988 Respiratory Syncytial Virus (RSV) Immunization (Adult) (1 - 1-dose 75+ series) 2013 Influenza Immunization (#1) 2023 10/2 04/2021, 02/21/2021, 01/20/2020, Additional history exists SARS-COV-2 Immunization ( season) 2023 03/11/2021, 05/12/2020, 04/14/2020 Pneumococcal Immunization (50+ years) Completed 02/24/2020, 04/24/2015 DTaP/Tdap/Td Immunization Discontinued 11/21/2022, TdaP Immunization Completed 11/21/2022, 03/03/2019 Hepatitis B Immunization Aged Out No longer eligible based on patient's age to complete this topic Meningococcal Immunization (ACWY) Aged Out No longer eligible based on patient's age to complete this topic Rotavirus Immunization Aged Out No lo nger eligible based on patient's age to complete this topic Insurance MEDICARE C [facility] Care Teams Registered Nurse Maternity Relationship Specialty Start Date End Date Marcus Pate MD [address] [place] [address] PCP - General Family Medicine 04/09/23 Henrry Max DO [address] [address] Consulting Physician Oncology 04/09/23
--- OUTSIDE RECORDS SUMMARY | 2024-05-04 12:59 | XMS_ITS | Referral Summary ---
Author Organization [facility] Address [address] [place] [address] Care Team Providers Care Annealing Operator Name Role Phone Marcus Pate MD Primary Care Provider [phone] Marcus Pate MD Unavailable [phone] Alverto Harrington MD Unavailable [phone] Source Comments [facility],non-owned Affiliates and Associated Physician Practices is amultiple site organization consisting of ambulatory clinics and hospital sitesin [place], [place], [place]. This disclosure is being madepursuant to the Care Everywhere program and may not contain all information available regarding this patient. Last updated 17.[facility] Allergies Active Allergy Reactions Criticality Noted Date [...] Comments Blood Pressure 140/83 05/15/2023 10:00 AM INSULATION SUPERVISOR Pulse 66 05/15/2023 10:00 AM INSULATION SUPERVISOR Temperature 36.6 C (97.8 F) 05/15/2023 10:07 AM INSULATION SUPERVISOR Respiratory Rate 13 05/15/2023 10:00 AM INSULATION SUPERVISOR Oxygen Saturation 100% 05/15/2023 10:00 AM INSULATION SUPERVISOR Inhaled Oxygen Concentration - - Weight 90.3 kg (199 lb 1.6 oz) 05/15/2023 10:05 AM INSULATION SUPERVISOR Height 175.3 cm (5' 9 ) 05/15/2023 10:05 AM INSULATION SUPERVISOR Body Mass Index 29.4 05/15/2023 10:05 AM INSULATION SUPERVISOR Functional Status Functional Status Response Date of Assess ment Is person deaf or have serious hearing difficult y? Yes 08/17/2019 Is person blind or have serious difficulty seein g? Yes 08/17/2019 Does person have serious dif ficulty walking/climbing stairs? No 08/17/2019 Does person have difficulty dressing/bathing? No 08/17/2019 Does person have difficulty doing errands alone? No 08/17/2019 Cognitive Status Response Date of Assessm ent Does person have difficulty concentrating/remembering/making decisions? No 08/17/2019 Plan of Treatment Not on file Medical Devices Implanted Type Area Tower Helper Device Identifier Shelf Expiration Date Model / Serial / Lot Floseal Hemostatic Matrix Implanted:Qty: 1 on 08/17/2019 by Dennis Ann DO at [facility] Left: Spine Lumbar [employer] 11/02/2020 [id number] / / [id number] Graft Bone I Fctr 2.5cc Algrf Ptty Syr Implanted:Qty: 1 on 08/17/2019 by Dennis Ann DO at [facility] Left: Spine Lumbar [employer] 05/07/2022 [id number] / / [id number] Floseal Hemostatic Matrix Implanted:Qty: 1 on 08/17/2019 by Dennis Ann DO at [facility] Left: Spine Lumbar [employer] 07/26/2020 [id number] / / [id number] Advance Directives * Full Code (Latest Code Status on File) Date Activated Date Inactivated Comments 08/17/2019 11:45 AM 08/18/2019 3:43 PM Care Teams Annealing Operator Relationship Specialty Start Date End Date Marcus Pate MD PCP - General 08/24/19 Marcus Pate MD Family Medicine 08/24/19 Alverto Harrington MD Level Vial Setter Cardiology 05/25/19
== END 2024-05-04 10:56 | disposition home or self-care (01) ==
LOC: ANHSURGERY 10:59
PROVIDERS: Anesthesiology; PCP Family Medicine; Visit Provider Urology
DX: I10 Essential (primary) hypertension (principal); Z01.818 Encounter for other preprocedural examination
CPT/HCPCS: 36415; 80048

== ENCOUNTER 2024-05-06 02:24 | Day surgery (SDC) | payer MEDICARE, SELFPAY ==
--- NOTE | 2024-05-03 09:14 | PC.NURSE ---
Report to the Outpatient Waiting Room, entrance under the green pavilion located off [facility], at time _10 AM on date __05/06/24 . Planned Procedure Time: __1200 NOON .? Time changes happen often and if your time is changed the preop area will call you the afternoon before. - You and your visitor will be asked to self-screen and do not enter if you have any COVID symptoms. Please call surgeon if you need to reschedule. - A mask is optional within the hospital at this time. Patients may have clear liquids (water, carbonated beverages, clear teas, apple juice) until 3 hours prior to surgery ( 9AM)with a maximum of 20 ounces. - No food from midnight until time of surgery and no smoking, or chewing tobacco (or any form of nicotine). No chewing gum, candy or mints. - Infants may have breast milk until 4 hours before surgery, formula 6 hours prior to surgery. - Children will be allowed to drink immediately following surgery.? If applicable, please bring a bottle or sippy cup to assist with drinking. Juice, water, soda, and popsicles are readily available.? For infants on formula, please bring formula the day of surgery.? Pacifiers are allowed. Take only the following medications with a SIP of water on the morning of surgery: __AMLODIPINE,SYMBICORT,BUSPIRONE,ESCITALOPRAM,METOPROLOL DO NOT STOP ANY OF YOUR OTHER PRESCRIPTION MEDICATIONS PRIOR TO SURGERY EXCEPT THE FOLLOWING Hold all vitamins and supplements for 3 days per anesthesiologist. Medications to discontinue per physician PT STATES HOLD ASPIRIN __7 DAYS PRE OP PER DR HENNESSY Date to take last dose 04/28/24 Please no make-up, nail kenyan, hairspray, perfume, deodorant, or body powder the day of surgery.? No jewelry (including any body piercings) or valuables the day of surgery, leave them at home.? Please take a shower or bath the night before, or the morning of, surgery with an antibacterial soap.? Wear comfortable, loose fitting clothing.? Children are encouraged to wear pajamas. - Jewelry must be removed prior to entering the operating room.? Rings and piercings that are not removed may be cut off. - The hospital will not accept responsibility for valuables.? - Please leave all valuables, including medications, at home the day of surgery. If you are going home after surgery, a licensed route driver salesperson must drive you home.? - NO public transportation without another adult if you receive anesthesia. - We recommend that an adult stay with you for 24 hours following discharge. - We also recommend that you do not drive, make important decision, drink alcoholic beverages, or take any drugs that were not prescribed by your health care provider for at least 24 hours after your discharge time. For Pediatric surgeries, we recommend two adults accompany the child home. Follow any additional instructions given to you from your surgeon. Telephone instructions given to ___PATIENT and asked if any additional questions and then verbalized understanding. Patient advised to call surgeon office or pre surgery nurse liaison [phone] if any additional questions.
[2024-05-03 09:26] VITALS: BMI 28.0
--- NOTE | 2024-05-05 16:54 | PM.HPGS ---
History of Present Illness History of Present Illness Consent: Risks, benefits, and alternatives have been discussed and questions answered. Patient agrees to proceed with procedure. Chief complaint: Right Ureteral Stone Narrative: Robbi Oneill is a 84 year old male recent evaluation for persistent scant hematuria. CT revealed 8mm right distal rueteral stone. Review of Systems Cardiovascular: Cardiovascular: Denies chest pain, Denies lightheadedness, Denies palpitations and Denies dyspnea Respiratory: Respiratory: Denies dyspnea Gastrointestinal: Gastrointestinal: Denies diarrhea, Denies nausea and Denies vomiting Genitourinary: Genitourinary: Denies hematuria and Denies dysuria Endocrine: Endocrine: Denies palpitations [facility] Past Medical History Medical History Anxiety Atrial fibrillation CAD (coronary artery disease) CHF (congestive heart failure) Hyperlipidemia Hypertension CLAUDETTE (obstructive sleep apnea) Bipap Surgical History Surgical History History of coronary artery stent placement Social History Social History Smoking packs per day: 0.5 Smoking cigarettes per day: 10.0 Years smoked: 3 Smoking pack-years: 1.50 Smoking status: Never smoker Tobacco type: cigarettes Second hand tobacco smoke exposure: No Smoking end date: 03/10/74 Alcohol intake: current Drinks per week: 7 Substance use: never Substance use type: does not use Living arrangements: with family Spiritual care concerns: No Meds Home Medications and Allergies Home Medications ?Medication ?Instructions ?Recorded ?Confirmed ?Type buspirone 5 mg tablet 5 mg PO BID 04/10/22 05/03/24 History ezetimibe 10 mg tablet 10 mg PO HS 04/10/22 05/03/24 History potassium chloride 20 mEq 20 meq PO DAILY 04/10/22 05/03/24 History tablet,extended release(part/cryst) tamsulosin 0.4 mg capsule 0.4 mg PO BID 04/10/22 05/03/24 History albuterol sulfate 90 mcg/actuation 2 puff inhalation PRN PRN 03/07/23 05/03/24 History aerosol inhaler Shortness Of Breath amlodipine 5 mg tablet 5 mg PO DAILY 03/07/23 05/03/24 History finasteride 5 mg tablet 5 mg PO HS 03/07/23 05/03/24 History fluticasone propionate 50 2 spray intranasal PRN PRN Allergy 03/07/23 05/03/24 History mcg/actuation nasal Symptoms spray,suspension furosemide 20 mg tablet 40 mg PO DAILY 03/07/23 05/03/24 History metoprolol tartrate 50 mg tablet 50 mg PO BID 03/07/23 05/03/24 History ondansetron 4 mg disintegrating 4 mg PO PRN PRN Nausea 03/07/23 05/03/24 History tablet budesonide-formoterol HFA 160 2 puff inhalation BID 09/12/23 05/03/24 History mcg-4.5 mcg/actuation aerosol inhaler (Symbicort) escitalopram oxalate 10 mg tablet 10 mg PO DAILY 09/12/23 05/03/24 History aspirin 81 mg tablet 81 mg PO DAILY 10/07/23 05/03/24 History clopidogrel 75 mg tablet 75 mg PO DAILY 10/07/23 05/03/24 History cephalexin 500 mg capsule 500 mg PO Q8H #9 caps 10/17/23 05/03/24 Rx hydrocodone 5 mg-acetaminophen 325 1 - 2 tablet PO Q6H PRN pain #20 10/17/23 05/03/24 Rx mg tablet tabs Allergies Allergy/AdvReac Type Severity Reaction Status Date / Time Penicillins Allergy Severe HIVES Verified 05/03/24 09:14 Exam Const: General: no acute distress Resp: Effort & Inspection: normal respiratory effort GI: Inspection: non-distended GI Palp: No abdominal tenderness and No Guarding due to palpation present (GI) Auscultation: normal bowel sounds Assessment and Plan Assessment and plan (1) Right ureteral stone: Code(s): N20.1 - Calculus of ureter Status: Acute Assessment and Plan: Cystoscopy with right ureteroscopy with stone extraction, possible laser lithotripsy, retrograde pyelogram and stent placement.
[2024-05-06] VITALS (8 sets, daily range): BP systolic 82–138; BP diastolic 45–70; PULSE 60–79; RESP 14–18; TEMP 36.1–36.5; O2SAT 93–100
--- OUTSIDE RECORDS SUMMARY | 2024-05-06 02:27 | XMS_ITS | Referral Summary ---
Author Organization [facility] Address [address] [place] [address] Care Team Providers Care Powertrain Calibration Engineer Name Role Phone Marcus Pate MD Primary Care Provider [phone] Allergies Active Allergy Reactions Criticality Noted Date [...] on file Legal Sex Male 6:01 PM OIL WELL LOGGER Gender Identity Not on file Sexual Orientation [...] 99.8 kg (220 lb) 05/05/2019 11:12 AM OIL WELL LOGGER Height 175.3 cm (5' 9 ) 05/05/2019 11:12 AM OIL WELL LOGGER Body Mass Index 32.49 05/05/2019 11:12 AM OIL WELL LOGGER Plan of Treatment Not on file Insurance Care Teams Powertrain Calibration Engineer Relationship Specialty Start Date End Date Marcus Pate MD PCP - General 07/22/18
--- OUTSIDE RECORDS SUMMARY | 2024-05-06 02:27 | XMS_ITS | Clinical Summary ---
Author Organization [facility] Address [address] [place] [address] Care Team Providers Care Retail Loss Prevention Specialist Name Role Phone Marcus Pate MD Primary Care Provider [phone] Allergies Active Allergy Reactions Criticality Noted Date [...] on file Legal Sex Male 6:[address] Gender Identity Not on file Sexual Orientation [...] 99.8 kg (220 lb) 05/05/2019 11:[address] REPORTER Height 175.3 cm (5' 9 ) 05/05/2019 11:[address] REPORTER Body Mass Index 32.49 05/05/2019 11:[address] REPORTER Plan of Treatment Not on file Insurance [facility] MDCR HMO REF Care Teams Retail Loss Prevention Specialist Relationship Specialty Start Date End Date Marcus Pate MD PCP - General 07/22/18
--- OUTSIDE RECORDS SUMMARY | 2024-05-06 02:27 | XMS_ITS | Patient Health Summary ---
Author Organization [facility] [employer] Address [address] [place] [address] Care Team Providers Care Photoengraving Retoucher Name Role Phone Marcus Pate MD Primary Care Provider [phone] Marcus Pate MD Unavailable [phone] Alverto Harrington MD Unavailable [phone] Note from [facility],non-owned Affiliates and Associated Physician Practices is amultiple site organization consisting of ambulatory clinics and hospital sitesin [place], [place], [place] and [place]. This disclosure is being madepursuant to the Care Everywhere program and may not contain all information available regarding this patient. Last updated 17.[facility] Allergies * Penicillins(Urticaria) -Medium Criticality * Penicillins(Urticaria,Unknown) [...] Comments Blood Pressure 140/83 05/15/2023 10:00 AM WOOD ROOM SUPERVISOR Pulse 66 05/15/2023 10:00 AM WOOD ROOM SUPERVISOR Temperature 36.6 C (97.8 F) 05/15/2023 10:07 AM WOOD ROOM SUPERVISOR Respiratory Rate 13 05/15/2023 10:00 AM WOOD ROOM SUPERVISOR Oxygen Saturation 100% 05/15/2023 10:00 AM WOOD ROOM SUPERVISOR Inhaled Oxygen Concentration - - Weight 90.3 kg (199 lb 1.6 oz) 05/15/2023 10:05 AM WOOD ROOM SUPERVISOR Height 175.3 cm (5' 9 ) 05/15/2023 10:05 AM WOOD ROOM SUPERVISOR Body Mass Index 29.4 05/15/2023 10:05 AM WOOD ROOM SUPERVISOR Medical Devices Implanted Type Area Staff Sonographer Device Identifier Shelf Expiration Date Model / Serial / Lot Floseal Hemostatic Matrix Implanted:Qty: 1 on 08/17/2019 by Dennis Ann DO at [facility] Left: Spine Lumbar [employer] 11/02/2020 [id number] / / [id number] Graft Bone I Fctr 2.5cc Algrf Ptty Syr Implanted:Qty: 1 on 08/17/2019 by Dennis Ann DO at [facility] Left: Spine Lumbar [employer] 05/07/2022 [id number] / / [id number] Floseal Hemostatic Matrix Implanted:Qty: 1 on 08/17/2019 by Dennis Ann DO at [facility] Left: Spine Lumbar [employer] 07/26/2020 [id number] / / [id number] Procedures * SIX MINUTE WALK(Performed 05/06/2023) Performed [...] Pain Results * Six Minute Walk Test [facility] PFT Lab (05/06/2023 4:28 PM WOOD ROOM SUPERVISOR) Impressions Juan Francisco Hernandez MD - 05/06/2023 4:28 PM WOOD ROOM SUPERVISOR [facility] DEPARTMENT OF PULMONARY, CRITICAL CARE, AND [...] as listed above. Juan Francisco Hernandez MD Heat Treater Helper of Pulmonary & Critical Care Medicine [facility] Pager [phone] Narrative Juan Francisco Hernandez MD - 05/06/2023 4:28 PM WOOD ROOM SUPERVISOR Maria Victoria Wang DO 05/06/2023 4:33 PM David Walls MD RESPIRATORY THE RAPY ORDERABLES * CT CHEST WO CONTRAST (05/06/2023 10:24 AM WOOD ROOM SUPERVISOR) Anatomical Region Laterality Modality Chest Computed Tomogra phy 05/06/2023 10:5 3 AM WOOD ROOM SUPERVISOR Impressions 05/06/2023 4:11 PM WOOD ROOM SUPERVISOR Impression: 1.Bilateral pleural effusions, moderate on the right and small on the left with adjacent atelectasis. 2.Partially imaged large right renal cyst, 9 mm calcification within the right kidney and a punctate nonobstructing calculi in the left kidney. > Dictated by Peter Hill MD (residential leasing manager). > Dictated by Peter Hill MD (Broom Bundler) 05/06/2023 10:53 AM IEliceo MD have personally reviewed and interpreted this examination/study. > Interpreting Provider: Eliceo Cordova MD on 05/06/2023 4:11 PM Narrative 05/06/2023 4:11 PM WOOD ROOM SUPERVISOR PROCEDURE: CT CHEST WO CONTRAST, DATE/TIME OF EXAM: 05/06/2023 10:25 AM, LOCATION [facility] INDICATION: R06.09: Dyspnea on exertion COMPARISON: Report [...] CONTRAST, DATE/TIME OF EXAM: 05/06/2023 10:25AM, LOCATION [facility] INDICATION: R06.09: Dyspnea on exertion COMPARISON: Report [...] > Dictated by Peter Hill MD (residential leasing manager). > Dictated by Peter Hill MD (Broom Bundler) 05/06/2023 10:53 AM I, Eliceo Cordova MD have personally reviewed and interpreted this examination/study. > Interpreting Provider: Eliceo Cordova MD on 05/06/2023 4:[address] ORDERABLES * PFT Oxygen Desaturation Study [facility] PFT Lab (05/06/2023 10:13 AM WOOD ROOM SUPERVISOR) Impressions Juan Francisco Hernandez MD - 05/06/2023 10:13 AM WOOD ROOM SUPERVISOR [facility] DEPARTMENT OF PULMONARY, CRITICAL CARE, AND [...] as listed above. Juan Francisco Hernandez MD Heat Treater Helper of Pulmonary & Critical Care Medicine [facility] Pager [phone] Narrative Juan Francisco Hernandez MD - 05/06/2023 10:13 AM WOOD ROOM SUPERVISOR Maria Victoria Wang DO 05/07/2023 7:09 AM David Walls MD PFT ORDERABLES * COMPLETE PFT W/WO BRONCHODILATOR (05/06/2023 10:13 AM WOOD ROOM SUPERVISOR) Impressions Juan Francisco Hernandez MD - 05/06/2023 10:13 AM WOOD ROOM SUPERVISOR [facility] DEPARTMENT OF PULMONARY, CRITICAL CARE, AND [...] as listed above. Juan Francisco Hernandez MD Heat Treater Helper of Pulmonary & Critical Care Medicine [facility] Pager [phone] Narrative Juan Francisco Hernandez MD - 05/06/2023 10:13 AM WOOD ROOM SUPERVISOR Maria Victoria Wang DO 05/07/2023 7:09 AM David Walls MD RESPIRATORY THE RAPY ORDERABLES * RAD OUTSIDE IMG IMPORT (07/04/2020 7:41 AM CDT) Only the most recent of2 resultswithin the time period is included. Dennis Ann DO DIAGNOSTIC IMAGING O RDERABLES [facility] [address] [place] [address] * PAIN MANAGEMENT PROCEDURE TIME (01/05/2020 10:14 [...] on how to reach the clinic or coffee plantation worker physician at anytime for questions or complaints. [...] 80.7 - 98.3 fl 08/27/2019 2:19 PM [facility] MCH 32.3 26.7 - 34.0 pg 08/27/2019 2:19 PM [facility] MCHC 33.2 30.8 - 35.9 gm/dL 08/27/2019 2:19 PM [facility] Platelet Count 213 153 - 416 x10E9/L 08/27/2019 2:19 PM [facility] RDW-CV 12.5 12.1 - 14.9 % 08/27/2019 2:19 PM [facility] MPV 8.8(L) 9.4 - 12.9 fl 08/27/2019 2:19 PM [facility] Neutrophils % 74.5(H) 44.0 - 73.0 % 08/27/2019 2:19 PM [facility] Lymphocytes % 10.5(L) 20.0 - 43.0 % 08/27/2019 2:19 PM [facility] Monocytes % 10.5 5.0 - 13.0 % 08/27/2019 2:19 PM [facility] Eosinophils % 3.2 0.0 - 6.0 % 08/27/2019 2:19 PM [facility] Basophils % 0.4 0.0 - 2.0 % 08/27/2019 2:19 PM [facility] Immature Granulocytes 0.9 0 - 1 % 08/27/2019 2:19 PM [facility] Neutrophil Absolute 5.60 2.01 - 7.14 x10E9/L 08/27/2019 2:19 PM [facility] Lymphocytes Absolute 0.79(L) 1.07 - 3.94 x10E9/L 08/27/2019 2:19 PM [facility] Monocytes Absolute 0.79 0.26 - 1.07 x10E9/L 08/27/2019 2:19 PM [facility] Eosinophils Absolute 0.24 0 - 0.47 x10E9/L 08/27/2019 2:19 PM [facility] Basophils Absolute 0.03 0 - 0.08 x10E9/L 08/27/2019 2:19 PM [facility] Immature Granulocytes Absolute 0.07(H) 0.00 - 0.06 x10E9/L 08/27/2019 2:19 PM CDT [facility] nRBC Auto 0 /100 WBC 08/27/2019 2:19 PM CDT [facility] Blood BLOOD SPECIMEN / Unknown Venipuncture / Unknown 08/27/2019 2:06 PM CDT 08/27/2019 2:15 PM CDT Lester Beauchamp MD LAB - HEMATOLOGY ORD ERABLES [facility] [address] [place] [address] * (ABNORMAL) COMPREHENSIVE METABOLIC PANEL (08/27/2019 2:06 PM CDT) Glucose 85 70 - 105 mg/dL 08/27/2019 2:37 PM T [facility] Sodium 140 136 - 145 mmol/L 08/27/2019 2:37 PM [facility] Potassium 4.6 3.5 - 5.1 mmol/L 08/27/2019 2:37 PM [facility] Chloride 106 98 - 107 mmol/L 08/27/2019 2:37 PM CDT [facility] CO2 26 23 - 31 mmol/L 08/27/2019 2:37 PM CDT [facility] Calcium 8.9 8.4 - 10.4 mg/dL 08/27/2019 2:37 PM [facility] Anion Gap 8 8 - 16 mmol/L 08/27/2019 2:37 PM [facility] BUN 26(H) 8.4 - 25.7 mg/dL 08/27/2019 2:37 PM T [facility] Creatinine 0.96 0.72 - 1.25 mg/dL 08/27/2019 2:37 PM T [facility] Alkaline Phosphatase 108 40 - 150 U/L 08/27/2019 2:37 PM CDT [facility] ALT 22 0 - 61 U/L 08/27/2019 2:37 PM T [facility] AST 17 5 - 34 U/L 08/27/2019 2:37 PM [facility] Protein Total 6.0(L) 6.4 - 8.3 gm/dL 08/27/2019 2:37 PM [facility] Albumin 3.9 3.2 - 4.6 gm/dL 08/27/2019 2:37 PM CDT [facility] Bilirubin Total 0.8 0.2 - 1.2 mg/dL 08/27/2019 2:37 PM CDT [facility] eGFR by MDRD >60 mL/min/1.7 3m2 08/27/2019 2:37 PM CDT [facility] eGFR by MDRD >60 mL/min/1.7 3m2 08/27/2019 2:37 PM CDT [facility] Blood BLOOD SPECIMEN / Unknown Venipuncture / Unknown 08/27/2019 2:06 PM CDT 08/27/2019 2:15 PM CDT Lester Beauchamp MD LAB - CHEMISTRY ARASH FUENTES Performing Organization Address City/[facility]/ZIP Co de Phone Number [facility] [address] [address] * [...] MATTHIAS SURGERY (08/17/2019 8:24 AM CDT) Narrative [facility] - 08/17/2019 10:16 AM CDT For details of this study, please see the providers note. Dennis Ann DO FLUOROSCOPY ORDERABL ES [facility] [address] [address] * ARTERIAL LINE PERFORMABLE (08/17/2019 8:09 AM CDT) Narrative Tracy Moscoso APRN-CRNA - 08/17/2019 8:09 AM CDT Tracy Moscoso APRN-CRNA 08/17/2019 8:10 AM Arterial Line Placement Procedure Note Patient Location: [place]. Procedure: Arterial Line ([id number]). Procedure Section Indications: continuous blood pressure monitoring. [...] (Bezet) 436 ms [facility] MUSE Calculated P Virgie 19 degrees [facility] MUSE Calculated R Virgie 0 degrees [facility] MUSE Calculated T Virgie -24 degrees [facility] MUSE Interpretation EKG Normal sinus rhythm Cannot rule out Anterior infarct , age undetermined Nonspecific T wave abnormality Abnormal ECG No previous ECGs available Confirmed by Arsh Trevino ([id number]) on 08/18/2019 8:25:59 AM [facility] MUSE 08/17/2019 7:00 AM CDT 08/18/2019 8:25 AM CDT Wally Perkins MD ECG ORDERABLES [facility] * (ABNORMAL) CBC W/O DIFFERENTIAL (08/17/2019 6:55 AM CDT) WBC 5.5 4.4 - 10.7 x10E9/L 08/17/2019 7:00 AM CDT [facility] RBC 4.21 3.80 - 5.40 x10E12/L 08/17/2019 7:00 AM CDT [facility] Hemoglobin 13.5 12.0 - 17.6 gm/dL 08/17/2019 7:00 AM CDT [facility] Hematocrit 40.6 35.2 - 51.7 % 08/17/2019 7:00 AM CDT [facility] MCV 96.4 80.7 - 98.3 fl 08/17/2019 7:00 AM CDT [facility] MCH 32.1 26.7 - 34.0 pg 08/17/2019 7:00 AM CDT [facility] MCHC 33.3 30.8 - 35.9 gm/dL 08/17/2019 7:00 AM [facility] Platelet Count 182 153 - 416 x10E9/L 08/17/2019 7:00 AM [facility] RDW-CV 12.9 12.1 - 14.9 % 08/17/2019 7:00 AM [facility] MPV 8.9(L) 9.4 - 12.9 fl 08/17/2019 7:00 AM [facility] Blood BLOOD SPECIMEN / Unknown Venipuncture / Unknown 08/17/2019 6:55 AM CDT 08/17/2019 6:57 AM CDT Wally Perkins MD LAB - HEMATOLO GY ORDERABLES [facility] [address] [place] [address] * BASIC METABOLIC PANEL (CALCIUM TOTAL) (08/17/2019 6:55 AM CDT) Glucose 103 70 - 105 mg/dL 08/17/2019 7:21 AM [facility] Sodium 139 136 - 145 mmol/L 08/17/2019 7:21 AM T [facility] Potassium 4.7 3.5 - 5.1 mmol/L 08/17/2019 7:21 AM [facility] Chloride 106 98 - 107 mmol/L 08/17/2019 7:21 AM T [facility] CO2 25 23 - 31 mmol/L 08/17/2019 7:21 AM CDT [facility] Calcium 8.9 8.4 - 10.4 mg/dL 08/17/2019 7:21 AM CDT [facility] Anion Gap 8 8 - 16 mmol/L 08/17/2019 7:21 AM CDT [facility] BUN 19 8.4 - 25.7 mg/dL 08/17/2019 7:21 AM CDT [facility] Creatinine 0.99 0.72 - 1.25 mg/dL 08/17/2019 7:21 AM CDT [facility] eGFR by MDRD >60 mL/min/1.7 3m2 08/17/2019 7:21 AM CDT [facility] eGFR by MDRD >60 mL/min/1.7 3m2 08/17/2019 7:21 AM CDT [facility] Blood BLOOD SPECIMEN / Unknown Venipuncture / Unknown 08/17/2019 6:55 AM CDT 08/17/2019 6:57 AM CDT Wally Perkins MD LAB - CHEMISTR Y ORDERABLES [facility] [address] [place] [address] * SARS-COV-2 (COVID-19) IN HOUSE (08/13/2019 11:20 AM CDT) COVID-19 PCR Not detected Not detected, Invalid 08/14/2019 2:12 AM CDT [facility] Microbiology SPECIMEN FROM NASOPHARYNGEAL STRUCTURE / Unknown Collection / Unknown 08/13/2019 11:20 AM CDT 08/13/2019 3:01 PM CDT Narrative [facility] - 08/14/2019 2:12 AM CDT This Real Time RT-PCR assay was developed and its performance characteristics determined by [facility]. This test has been authorized [...] Ann DO LAB - MICROBIOLOGY O RDERABLES [facility] [address] [place], [address] [phone] Care Teams Photoengraving Retoucher Relationship Specialty Start Date End Date Marcus Pate MD PCP - General 08/24/19 Marcus Pate MD Family Medicine 08/24/19 Alverto Harrington MD Equine Intern Cardiology 05/25/19
--- OUTSIDE RECORDS SUMMARY | 2024-05-06 02:27 | XMS_ITS | Clinical Summary ---
Author Organization [facility] Address [address] [place] [address] Phone Care Team Providers Care Developer Prover Upholstering Name Role Phone Marcus Pate MD Primary Care Provider [phone] Henrry Max DO Unavailable [phone] Allergies Active Allergy Reactions Criticality Noted [...] on file Legal Sex Female 2:45 PM CERTIFIED WELLNESS PROGRAM COORDINATOR Gender Identity Not on file Sexual Orientation Not on file Last Filed Vital Signs Vital Sign Reading Time Taken Comments Blood Pressure 120/76 04/23/2023 12:10 PM CERTIFIED WELLNESS PROGRAM COORDINATOR Pulse 79 04/23/2023 12:10 PM CERTIFIED WELLNESS PROGRAM COORDINATOR Temperature 36.7 C (98 F) 04/23/2023 12:10 PM CERTIFIED WELLNESS PROGRAM COORDINATOR Respiratory Rate - - Oxygen Saturation 99% 04/23/2023 12:10 PM CERTIFIED WELLNESS PROGRAM COORDINATOR Inhaled Oxygen Concentration - - Weight 90.7 kg (200 lb) 04/23/2023 12:10 PM CERTIFIED WELLNESS PROGRAM COORDINATOR Height 175.3 cm (5' 9 ) 04/23/2023 12:10 PM CERTIFIED WELLNESS PROGRAM COORDINATOR Body Mass Index 29.53 04/23/2023 12:10 PM CERTIFIED WELLNESS PROGRAM COORDINATOR Plan of Treatment Health Maintenance Due Date [...] to complete this topic Insurance MEDICARE C [facility] Care Teams Developer Prover Upholstering Relationship Specialty Start Date End Date Marcus Pate MD [address] [place] [address] PCP - General Family Medicine 04/09/23 Henrry Max DO [id number] [address] Consulting Physician Oncology 04/09/23
--- OUTSIDE RECORDS SUMMARY | 2024-05-06 02:27 | XMS_ITS | Referral Summary ---
Author Organization [facility] [employer] Address [address] [place] [address] Care Team Providers Care Account Consultant Name Role Phone Marcus Pate MD Primary Care Provider [phone] Marcus Pate MD Unavailable [phone] Alverto Harrington MD Unavailable [phone] Source Comments [facility],non-owned Affiliates and Associated Physician Practices is amultiple site organization consisting of ambulatory clinics and hospital sitesin [place], [place], [place] and [place]. This disclosure is being madepursuant to the Care Everywhere program and may not contain all information available regarding this patient. Last updated 17.[facility] [employer] Allergies Active Allergy Reactions Criticality Noted Date [...] Comments Blood Pressure 140/83 05/15/2023 10:00 AM UX SPECIALIST Pulse 66 05/15/2023 10:00 AM UX SPECIALIST Temperature 36.6 C (97.8 F) 05/15/2023 10:07 AM UX SPECIALIST Respiratory Rate 13 05/15/2023 10:00 AM UX SPECIALIST Oxygen Saturation 100% 05/15/2023 10:00 AM UX SPECIALIST Inhaled Oxygen Concentration - - Weight 90.3 kg (199 lb 1.6 oz) 05/15/2023 10:05 AM UX SPECIALIST Height 175.3 cm (5' 9 ) 05/15/2023 10:05 AM UX SPECIALIST Body Mass Index 29.4 05/15/2023 10:05 AM UX SPECIALIST Functional Status Functional Status Response Date of [...] on file Medical Devices Implanted Type Area Motor Vehicle Representative Device Identifier Shelf Expiration Date Model / Serial / Lot Floseal Hemostatic Matrix Implanted:Qty: 1 on 08/17/2019 by Dennis Ann DO at [facility] Left: Spine Lumbar [employer] 11/02/2020 [id number] / / [id number] Graft Bone I Fctr 2.5cc Algrf Ptty Syr Implanted:Qty: 1 on 08/17/2019 by Dennis Ann DO at [facility] Left: Spine Lumbar [employer] 05/07/2022 700-025 / / [id number] Floseal Hemostatic Matrix Implanted:Qty: 1 on 08/17/2019 by Dennis Ann DO at [facility] Left: Spine Lumbar [employer] 07/26/2020 [id number] / / [id number] Advance Directives * Full Code (Latest Code Status on File) Date Activated Date Inactivated Comments 08/17/2019 11:45 AM 08/18/2019 3:43 PM Care Teams Account Consultant Relationship Specialty Start Date End Date Marcus Pate MD PCP - General 08/24/19 Marcus Pate MD Family Medicine 08/24/19 Alverto Harrington MD Cushion Assembler Cardiology 05/25/19
--- OUTSIDE RECORDS SUMMARY | 2024-05-06 02:27 | XMS_ITS | Clinical Summary ---
Author Organization [facility] [employer] Address [address] [place] [address] Care Team Providers Care Wig Comber Name Role Phone Marcus Pate MD Primary Care Provider [phone] Marcus Pate MD Unavailable [phone] Alverto Harrington MD Unavailable [phone] [facility],non-owned Affiliates and Associated Physician Practices is amultiple site organization consisting of ambulatory clinics and hospital sitesin [place], [place], [place] and [place]. This disclosure is being madepursuant to the Care Everywhere program and may not contain all information available regarding this patient. Last updated 17.[facility] [employer] Allergies Active Allergy Reactions Criticality Noted Date [...] Comments Blood Pressure 140/83 05/15/2023 10:00 AM WHOLESALE MANAGER Pulse 66 05/15/2023 10:00 AM WHOLESALE MANAGER Temperature 36.6 C (97.8 F) 05/15/2023 10:07 AM WHOLESALE MANAGER Respiratory Rate 13 05/15/2023 10:00 AM WHOLESALE MANAGER Oxygen Saturation 100% 05/15/2023 10:00 AM WHOLESALE MANAGER Inhaled Oxygen Concentration - - Weight 90.3 kg (199 lb 1.6 oz) 05/15/2023 10:05 AM WHOLESALE MANAGER Height 175.3 cm (5' 9 ) 05/15/2023 10:05 AM WHOLESALE MANAGER Body Mass Index 29.4 05/15/2023 10:05 AM WHOLESALE MANAGER Plan of Treatment Health Maintenance Due Date [...] this topic Medical Devices Implanted Type Area Section Repairer Device Identifier Shelf Expiration Date Model / Serial / Lot Floseal Hemostatic Matrix Implanted:Qty: 1 on 08/17/2019 by Dennis Ann DO at [facility] Left: Spine Lumbar [employer] 11/02/2020 [id number] / / [id number] Graft Bone I Fctr 2.5cc Algrf Ptty Syr Implanted:Qty: 1 on 08/17/2019 by Dennis Ann DO at [facility] Left: Spine Lumbar [employer] 05/07/2022 700-025 / / [id number] Floseal Hemostatic Matrix Implanted:Qty: 1 on 08/17/2019 by Dennis Ann DO at [facility] Left: Spine Lumbar [employer] 07/26/2020 [id number] / / [id number] Advance Directives * Full Code (Latest Code Status on File) Date Activated Date Inactivated Comments 08/17/2019 11:45 AM 08/18/2019 3:43 PM Care Teams Wig Comber Relationship Specialty Start Date End Date Marcus Pate MD PCP - General 08/24/19 Marcus Pate MD Family Medicine 08/24/19 Alverto Harrington MD Cafeteria Monitor Cardiology 05/25/19
--- NOTE | 2024-05-06 06:22 | WPDHPUPDATE1 ---
History and Physical Update Update Date/Time: 05/06/24 06:22 History and Physical has been reviewed, including an updated exam of the patient. There are NO changes in the patient's condition. Risks, benefits, and alternatives have been discussed and questions answered. Patient agrees to proceed with procedure.
[2024-05-06] MEDS: LACTATED RINGERS 1,000 ML 30 ML IV CONT ×2 (10:15→12:38)
--- NOTE | 2024-05-06 11:48 | SUR.PREOP ---
PT UPDATED ABOUT SURGERY TIME, WARM BLANKETS GIVEN
--- NOTE | 2024-05-06 11:54 | WPDANESEPPF ---
Anes - Initial Pre Proc Eval Procedure: Operation Date: 05/06/24 12:00 Proposed Procedures p Cystoscopy, Right Ureteroscopy, Right Stone Extraction, Possible Holmium Laser, Right Retrograde Pyelogram, Right Stent Placement - Nikunj Walker MD Date/Time: 05/06/24 11:54 Surgeon: Nikunj Walker MD Pre Op Diagnosis: Right Ureteral Stone Patient Data Age: 84 Gender: M Height: 1.75 m Weight: 84.5 kg Last Vital Signs Temp 97.0 F L 05/06/24 10:05 Pulse 79 05/06/24 10:05 Resp 18 05/06/24 10:05 BP 114/70 05/06/24 10:05 Pulse Ox 100 05/06/24 10:05 O2 Del Method Room Air 05/06/24 10:05 Allergies Allergy/AdvReac Type Severity Reaction Status Date / Time Penicillins Allergy Severe HIVES Verified 05/06/24 10:30 Home Medications ?Medication ?Instructions ?Recorded ?Confirmed ?Type buspirone 5 mg tablet 5 mg PO BID 04/10/22 05/06/24 History ezetimibe 10 mg tablet 10 mg PO HS 04/10/22 05/06/24 History potassium chloride 20 mEq 20 meq PO DAILY 04/10/22 05/06/24 History tablet,extended release(part/cryst) tamsulosin 0.4 mg capsule 0.4 mg PO BID 04/10/22 05/06/24 History albuterol sulfate 90 mcg/actuation 2 puff inhalation PRN PRN 03/07/23 05/03/24 History aerosol inhaler Shortness Of Breath amlodipine 5 mg tablet 5 mg PO DAILY 03/07/23 05/06/24 History finasteride 5 mg tablet 5 mg PO HS 03/07/23 05/06/24 History fluticasone propionate 50 2 spray intranasal PRN PRN Allergy 03/07/23 05/03/24 History mcg/actuation nasal Symptoms spray,suspension furosemide 20 mg tablet 40 mg PO DAILY 03/07/23 05/06/24 History metoprolol tartrate 50 mg tablet 50 mg PO BID 03/07/23 05/06/24 History budesonide-formoterol HFA 160 2 puff inhalation BID 09/12/23 05/06/24 History mcg-4.5 mcg/actuation aerosol inhaler (Symbicort) escitalopram oxalate 10 mg tablet 10 mg PO DAILY 09/12/23 05/06/24 History aspirin 81 mg tablet 81 mg PO DAILY 10/07/23 05/06/24 History Patient hx anesthesia problems: none Family hx anesthesia problems: none Results Review: All pre-operative results and documents have been reviewed as part of the pre-operative evaluation. [facility] Past Medical History Medical History Anxiety CLAUDETTE (obstructive sleep apnea) Bipap Hyperlipidemia Hypertension CAD (coronary artery disease) CHF (congestive heart failure) Atrial fibrillation Surgical History Surgical History History of coronary artery stent placement Social History Social History Smoking packs per day: 0.5 Smoking cigarettes per day: 10.0 Years smoked: 3 Smoking pack-years: 1.50 Smoking status: Never smoker Tobacco type: cigarettes Second hand tobacco smoke exposure: No Smoking end date: 03/10/74 Alcohol intake: current Drinks per week: 7 Substance use: never Substance use type: does not use Living arrangements: with family Spiritual care concerns: No Anes - Eval Final PreProcedure Day of Procedure 05/06/24 11:54 Patient weight: overweight Lungs: normal air movement Airway: Mallampati scale class II Neurological: alert and oriented Last oral intake: >/= 8 hours ASA classification: III Emergent: no Anesthetic plan: proceed Anesthesia type and monitoring: general LMA and standard monitoring Results Review: All pre-operative results and documents have been reviewed as part of the pre-operative evaluation. Hx HTN, hyperlipidemia CLAUDETTE, now for cysto/stent. Overall good functional status, no cp or sob w activity. Informed Consent: The patient's anesthetic plan and its attendant risks and benefits were discussed with the patient/family/POA. Questions were solicited and answers provided to the satisfaction of the patient/family/POA.
[2024-05-06] MEDS: ceFAZolin 2 GM/D5W 50 ML 2 GM/50 ML BAG IVPB (12:15)
[2024-05-06] MEDS: LIDOCAINE 2% GEL UROJET 10 ML PKG MUCOUS MEM (12:17)
--- NOTE | 2024-05-06 12:45 | W.PM.PROC2 ---
Procedure Note - Detailed Date of Procedure 05/06/24 Pre-op Diagnosis Right Ureteral Stone Post-op Diagnosis Same Procedure Performed Cystoscopy, right ureteroscopy with stone extraction Surgeon Nikunj Walker MD Anesthesia General Description of Procedure Patient is brought to the operative suite where he was prepped and draped in routine sterile fashion while in dorsal lithotomy position after the uneventful induction of a general LMA anesthetic. Cystoscopy was undertaken with a 19 F rigid cystoscope. There was no urethral stricture and very modest lateral lobe hyperplasia without median lobe enlargement. The bladder showed slight trabeculation. There was no mucosal hyperemia or kavin neoplasm. A 0.035 in glidewire was advanced into his right renal pelvis. The 7 day mm stone can be seen at the ureteral orifice. This extracted with simple ureteroscopy. I did not need to use laser lithotripsy and therefore opted not to place a ureteral stent. Scopes and wires removed. The patient was taken recovery room good condition.
--- NOTE | 2024-05-06 12:53 | SUR.PHASEI ---
9715 - dr. garza called in regards to questions of pacemaker interrogation. stated no need for interrogation
== END 2024-05-06 14:15 | disposition home or self-care (01) ==
PROVIDERS: PCP Family Medicine; Visit Provider Urology
PROC: (CPT 52352; principal; 2024-05-06 12:00)
DX: N20.1 Calculus of ureter (principal); Z87.891 Personal history of nicotine dependence
CPT/HCPCS: 52352; 74420; 82365; 88300; C1769; J0690; J2003; J2405; J2704; J3010; J7120

== ENCOUNTER 2024-07-02 07:39 | Outpatient (CLI) | payer MEDICARE, SELFPAY ==
--- NOTE | ~2024-07-02 | CT_ITS ---
CT of the Abdomen and Pelvis: Indication: Hematuria Technique: 2.5 mm axial scans were obtained through the abdomen and pelvis prior to and following in travenous administration of 130 cc of Omnipaque 350. Dose reduction technique was used on this scan b y utilizing automated exposure control and iterative reconstruction technique. The dose-length produc t (DLP) was 1819.49 mGy-cm. COMPARISON: 04/06/2022 Findings: Scans through the lung bases demonstrate small bilateral pleural effusions, right greater left, with interstitial bibasilar pulmonary edema. Calcified bibasilar granulomas are present.. There is moderate to severe right hydronephrosis, with relative tapering at the distal ureter. No ure teral stone present. Multiple stones are present in the right kidney and right renal pelvis, measurin g up to 1.4 cm in largest diameter. No left hydronephrosis or hydroureter. 4 mm nonobstructing left r enal stone present. 12 mm exophytic mass anteriorly is compatible hyperdense cyst (series 3 image 74) , unchanged. Stable large cystic mass adjacent to the right kidney in the infrahepatic region. There is mild diffuse heterogeneity of the liver on postcontrast images without focal discrete mass o r biliary dilatation. The spleen, pancreas, left adrenal gland, are within normal limits. Cholecystec od clips are present. 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 There are severe atherosclerotic calcifications of the aorta and iliac vessels. No lymphadenopathy. No bowel obstruction or bowel wall thickening. There is no evidence to suggest acute appendicitis. Images through the pelvis were performed. Urinary bladder unremarkable. Prostate gland is enlarged. Impression: Moderate to severe right hydroureter and hydronephrosis, as detailed above, with multiple nonobstruct ing stones the right renal collecting system and renal pelvis. No right ureteral stone. Fluid and/or infiltrative change at the proximal right ureter. Correlate for superimposed ascending u rinary tract infection. Small nonobstructing left renal stone, as above. Small bilateral pleural effusions with bibasilar interstitial edema. Possible passive venous congestion changes in the liver on postcontrast images. Reviewed, dictated and finalized at [facility] signed by Surinder Hernandes M.D. on 07/02/2024 8:55 CDT Impression: Moderate to severe right hydroureter and hydronephrosis, as detailed above, wit h multiple nonobstructing stones the right renal collecting system and renal pe lvis. No right ureteral stone. Fluid and/or infiltrative change at the proximal right ureter. Correlate for ehredia perimposed ascending urinary tract infection. Small nonobstructing left renal stone, as above. Small bilateral pleural effusions with bibasilar interstitial edema. Possible passive venous congestion changes in the liver on postcontrast images.
--- OUTSIDE RECORDS SUMMARY | 2024-07-02 07:44 | XMS_ITS | Referral Summary ---
Author Organization [facility] Address [address] [place] [address] Care Team Providers Care Mud Plant Operator Name Role Phone Marcus Pate MD Primary Care Provider [phone] Allergies Active Allergy Reactions Criticality Noted Date [...] on file Legal Sex Male 6:01 PM DIRECTOR STAGE Gender Identity Not on file Sexual Orientation [...] 99.8 kg (220 lb) 05/05/2019 11:12 AM DIRECTOR STAGE Height 175.3 cm (5' 9 ) 05/05/2019 11:12 AM DIRECTOR STAGE Body Mass Index 32.49 05/05/2019 11:12 AM DIRECTOR STAGE Plan of Treatment Not on file Insurance [id number] [place] [id number] [facility] MDCR HMO REF [facility] MEDICARE Address: [facility] [address] [place] [address] Care Teams Mud Plant Operator Relationship Specialty Start Date End Date Marcus Pate MD PCP - General 07/22/18
--- OUTSIDE RECORDS SUMMARY | 2024-07-02 07:44 | XMS_ITS | Clinical Summary ---
Author Organization [facility] Address [address] [place] [address] Care Team Providers Care Scarifier Operator Name Role Phone Marcus Pate MD Primary Care Provider [phone] Marcus Pate MD Unavailable [phone] Alverto Harrington MD Unavailable [phone] Source Comments [facility],non-owned Affiliates and Associated Physician Practices is amultiple site organization consisting of ambulatory clinics and hospital sitesin [place], [place], [place] and [place]. This disclosure is being madepursuant to the Care Everywhere program and may not contain all information available regarding this patient. Last updated 17.[facility] Allergies Active Allergy Reactions Criticality Noted Date Comments Penicillins Urticaria Medium 08/27/2019 Penicillins Urticaria,Unknown Medium 10/14/2015 Medications * Be aware that medications may not be up to date on this document. Alwaysverify current medications with the patient. amLODIPine (NORVASC) 5 MG tablet Take 1 (one) tablet by mouth once daily 9 Active atenolol (TENORMIN) 25 MG tablet Take 1 (one) tablet by mouth once daily 9 Active ezetimibe (ZETIA) 10 MG tablet Take 1 (one) tablet by mouth at bedtime 9 Active senna-docusate (SENOKOT-S) 8.6-50 MG tablet Take 1 tablet by mouth 2 times daily 30 tablet 0 Active Additional Information Patient not taking.Reported on 05/15/2023 tamsulosin (FLOMAX) 0.4 MG capsule Take 1 capsule by mouth 2 times daily 60 capsule 3 0 Active HYDROcodone-kathleen taminophen (NORCO) 5-325 MG tablet Take 1.5 tablets by mouth every 6 hours as needed for Pain 60 tablet 0 Active albuterol HFA (Proventil; Ventolin; Proair) 108 (90 Base) MCG/ACT inhaler Inhale 2 (two) puffs by mouth every 6 hours as needed 3 Active budesonide-form oterol (Symbicort) 160-4.5 MCG/ACT inhaler Inhale 2 (two) puffs by mouth 2 times daily 4 Active apixaban (Eliquis) 5 MG tablet Active busPIRone (Buspar) 5 MG tablet Take 1 (one) tablet by mouth 3 times daily Active metoprolol tartrate IR (Lopressor) 50 MG tablet Take 1 (one) tablet by mouth 2 times daily Active Active Problems Problem Noted Date Diagnosed Date Dyspnea on exertion 04/16/2023 CLAUDETTE (obstructive sleep apnea) 04/16/2023 Notalgia 08/17/2019 Encounters Date Type Department Care Team Description 06/01/2024 Travel from Last 3 Months Family History Medical History Relation Name Comments [...] at Not on file Legal Sex Male 12:18 PM WHARF LABORER Gender Identity Not on file Sexual Orientation Not on file Occupation Industry Job Start Date Job End Date Retired Not on file Not on file Not on file Last Filed Vital Signs Vital Sign Reading Time Taken Comments Blood Pressure 140/83 05/15/2023 10:00 AM WHARF LABORER Pulse 66 05/15/2023 10:00 AM WHARF LABORER Temperature 36.6 C (97.8 F) 05/15/2023 10:07 AM WHARF LABORER Respiratory Rate 13 05/15/2023 10:00 AM WHARF LABORER Oxygen Saturation 100% 05/15/2023 10:00 AM WHARF LABORER Inhaled Oxygen Concentration - - Weight 90.3 kg (199 lb 1.6 oz) 05/15/2023 10:05 AM WHARF LABORER Height 175.3 cm (5' 9 ) 05/15/2023 10:05 AM WHARF LABORER Body Mass Index 29.4 05/15/2023 10:05 AM WHARF LABORER Plan of Treatment Upcoming Encounters Date Type Department Care Team (Late st Contact Info) Description 08/09/2024 1:20 PM CDT Office Visit [facility] - Endocrinology [address] [place] [address] Radha Warren, DO [address] [facility] [address] [place] [id number] Health Maintenance Due Date Last Done Comments DTAP/TDAP/TD VACCINES (1 - Tdap) 1959 PNEUMOCOCCAL VACCINE 50+ (1 of 1 - PCV) 01/22/1988 ZOSTER VACCINE (1 of 2) 01/22/1988 Respiratory Syncytial Virus (RSV) Vaccine Pt: or over 60 yrs (1 - 1-dose 75+ series) 2013 COVID-19 VACCINE ( season) 2023 03/11/2021, 05/12/2020, 04/14/2020 DEPRESSION SCREENING 03/10/2024 MEDICARE AWV CALENDAR YEAR 2024 INFLUENZA VACCINE (Season Ended) 2024 02/21/2021, 01/20/2020, 01/05/2019, Additional history exists HEPATITIS B VACCINE Aged Out No longe r eligible based on patient's age to complete this topic HIB VACCINE Aged Out No longer eligi ble based on patient's age to complete this topic HPV VACCINE Aged Out No longer eligi ble based on patient's age to complete this topic MENINGOCOCCAL (Group B) VACCINE SHARED DECISION-MAKING Aged Out No longer eligible based on patient's age to complete this topic MENINGOCOCCAL GROUPS A/C/Y/W VACCINE Aged Out No longer eligible based on patient's age to complete this topic Medical Devices Implanted Type Area Edi Consultant Device Identifier Shelf Expiration Date Model / Serial / Lot Floseal Hemostatic Matrix Implanted:Qty: 1 on 08/17/2019 by Dennis Ann DO at Formerly named [facility] Left: Spine Lumbar [employer] 11/02/2020 [id number] / / [id number] Graft Bone I Fctr 2.5cc Algrf Ptty Syr Implanted:Qty: 1 on 08/17/2019 by Dennis Ann DO at Formerly named [facility] Left: Spine Lumbar [employer] 05/07/2022 [id number] / / [id number] Floseal Hemostatic Matrix Implanted:Qty: 1 on 08/17/2019 by Dennis Ann DO at Formerly named [facility] Left: Spine Lumbar [employer] 07/26/2020 [id number] / / [id number] Insurance [facility] [place] [address] SELF PAY NO INSURANCE Member Subscriber Plan / Payer (Ef fective for All Dates) Name:Sb Oneill Member ID:Not on file Relation to Subscriber:Not on file Name:SB ONEILL Subscriber ID:Not on file (Home) Address: [address] [place] [address] Payer ID:Not on file Group ID:Not on file Type:Self Pay Address: [facility] MANAGED MEDICARE ADV [facility] MANAGED MEDICARE ADV SELF PAY NO INSURANCE Member Subscriber Plan / Payer (Ef fective for All Dates) Name:Sb Oneill Member ID:Not on file Relation to Subscriber:Not on file Name:SB ONEILL Subscriber ID:Not on file (Home) Address: [address] [place] [address] Payer ID:Not on file Group ID:Not on file Type:Self Pay Address: [facility] [place] [address] Advance Directives * Full Code (Latest Code Status on File) Date Activated Date Inactivated Comments 08/17/2019 11:45 AM 08/18/2019 3:43 PM Care Teams Scarifier Operator Relationship Specialty Start Date End Date Marcus Pate MD PCP - General 08/24/19 Marcus Pate MD Family Medicine 08/24/19 Alverto Harrington MD Mirror Installer Cardiology 05/25/19
--- OUTSIDE RECORDS SUMMARY | 2024-07-02 07:44 | XMS_ITS | Clinical Summary ---
Author Organization [facility] Address [address] [place] [address] Phone Care Team Providers Care Medical Practice Administrator Name Role Phone Marcus Pate MD Primary Care Provider [phone] Henrry Max DO Unavailable [phone] Allergies Active Allergy Reactions Criticality Noted [...] on file Legal Sex Female 2:45 PM FIELD ARTILLERY SENIOR SERGEANT Gender Identity Not on file Sexual Orientation Not on file Last Filed Vital Signs Vital Sign Reading Time Taken Comments Blood Pressure 120/76 04/23/2023 12:10 PM FIELD ARTILLERY SENIOR SERGEANT Pulse 79 04/23/2023 12:10 PM FIELD ARTILLERY SENIOR SERGEANT Temperature 36.7 C (98 F) 04/23/2023 12:10 PM FIELD ARTILLERY SENIOR SERGEANT Respiratory Rate - - Oxygen Saturation 99% 04/23/2023 12:10 PM FIELD ARTILLERY SENIOR SERGEANT Inhaled Oxygen Concentration - - Weight 90.7 kg (200 lb) 04/23/2023 12:10 PM FIELD ARTILLERY SENIOR SERGEANT Height 175.3 cm (5' 9 ) 04/23/2023 12:10 PM FIELD ARTILLERY SENIOR SERGEANT Body Mass Index 29.53 04/23/2023 12:10 PM FIELD ARTILLERY SENIOR SERGEANT Plan of Treatment Health Maintenance Due Date [...] to complete this topic Insurance MEDICARE C [facility] [place] [address] Care Teams Medical Practice Administrator Relationship Specialty Start Date End Date Marcus Pate MD [address] [place] [address] PCP - General Family Medicine 04/09/23 Henrry Max DO [address] [address] Consulting Physician Oncology 04/09/23
--- OUTSIDE RECORDS SUMMARY | 2024-07-02 07:44 | XMS_ITS | Clinical Summary ---
Author Organization [facility] Address [address] [place] [address] Care Team Providers Care Promotional Model Name Role Phone Marcus Pate MD Primary Care Provider Allergies Active Allergy Reactions Criticality Noted Date [...] on file Legal Sex Male 6:01 PM ARTIST BLACKSMITH Gender Identity Not on file Sexual Orientation [...] 99.8 kg (220 lb) 05/05/2019 11:12 AM ARTIST BLACKSMITH Height 175.3 cm (5' 9 ) 05/05/2019 11:12 AM ARTIST BLACKSMITH Body Mass Index 32.49 05/05/2019 11:12 AM ARTIST BLACKSMITH Plan of Treatment Not on file Insurance [facility] Address: [facility] [address] [place] [address] Care Teams Promotional Model Relationship Specialty Start Date End Date Marcus Pate MD PCP - General 07/22/18
[2024-07-02 08:15] LABS: Estimated Glomerular Filt Rate 38
== END 2024-07-02 07:40 | disposition home or self-care (01) ==
PROVIDERS: PCP Family Medicine; Visit Provider Nurse Practitioner
DX: R31.0 Gross hematuria (principal); N13.30 Unspecified hydronephrosis; N20.0 Calculus of kidney; J90 Pleural effusion, not elsewhere classified; R91.8 Other nonspecific abnormal finding of lung field
CPT/HCPCS: 74178; Q9967

== ENCOUNTER 2024-07-06 12:15 | Outpatient (CLI) | payer MEDICARE, SELFPAY ==
--- NOTE | ~2024-07-06 | XR_ITS ---
Supine and upright views of the abdomen Clinical history: Bladder stone COMPARISON: 03/24/2024 Findings: Bowel gas pattern is nonspecific. No evidence for obstruction or free air. Suspected right renal stone, unchanged. Spinal fixation hardware and left hip arthroplasty are again present. Impression: Suspected stable right renal stone. Reviewed, dictated and finalized at [facility]. Impression: Suspected stable right renal stone.
--- OUTSIDE RECORDS SUMMARY | 2024-07-06 13:21 | XMS_ITS | Referral Summary ---
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
--- OUTSIDE RECORDS SUMMARY | 2024-07-06 13:21 | XMS_ITS | Clinical Summary ---
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ISTORY Height 175.3 cm (5' 9 ) 05/05/2019 11:12 AM ADJUNCT PROFESSOR OF U[employer]ISTORY Body Mass Index 32.49 05/05/2019 11:12 AM ADJUNCT PROFESSOR OF [employer]ISTORY Plan of Treatment Not on file Insurance [facility] [place] [address] Care Teams Statistical Assistant Relationship Specialty Start Date End Date Marcus Pate MD PCP - General 07/22/18
--- OUTSIDE RECORDS SUMMARY | 2024-07-06 13:21 | XMS_ITS | Clinical Summary ---
Author Organization [facility] Address [address] [place] [address] Phone Care Team Providers Care Joint Special Operations Name Role Phone Marcus Pate MD Primary Care Provider [phone] Henrry Max DO Unavailable [phone] Allergies Active Allergy Reactions Criticality Noted [...] on file Legal Sex Female 2:45 PM OPERATIONS SUPERVISOR Gender Identity Not on file Sexual Orientation Not on file Last Filed Vital Signs Vital Sign Reading Time Taken Comments Blood Pressure 120/76 04/23/2023 12:10 PM OPERATIONS SUPERVISOR Pulse 79 04/23/2023 12:10 PM OPERATIONS SUPERVISOR Temperature 36.7 C (98 F) 04/23/2023 12:10 PM OPERATIONS SUPERVISOR Respiratory Rate - - Oxygen Saturation 99% 04/23/2023 12:10 PM OPERATIONS SUPERVISOR Inhaled Oxygen Concentration - - Weight 90.7 kg (200 lb) 04/23/2023 12:10 PM OPERATIONS SUPERVISOR Height 175.3 cm (5' 9 ) 04/23/2023 12:10 PM OPERATIONS SUPERVISOR Body Mass Index 29.53 04/23/2023 12:10 PM OPERATIONS SUPERVISOR Plan of Treatment Health Maintenance Due Date [...] to complete this topic Insurance MEDICARE C [facility] Care Teams Joint Special Operations Relationship Specialty Start Date End Date Marcus Pate MD [address] [place] [address] PCP - General Family Medicine 04/09/23 Henrry Max DO [address] [address] Consulting Physician Oncology 04/09/23
--- OUTSIDE RECORDS SUMMARY | 2024-07-06 13:21 | XMS_ITS | Clinical Summary ---
Author Organization [facility] [employer] Address [address] [place] [address] Care Team Providers Care Curbstone Setter Name Role Phone Marcus Pate MD Primary Care Provider [phone] Marcus Pate MD Unavailable [phone] Alverto Harrington MD Unavailable [phone] Source Comments [facility],non-owned Affiliates and Associated Physician Practices is amultiple site organization consisting of ambulatory clinics and hospital sitesin [place], [place], [place] and [place]. This disclosure is being madepursuant to the Care Everywhere program and may not contain all information available regarding this patient. Last updated 17.[facility] [employer] Allergies Active Allergy Reactions Criticality Noted Date [...] on file Legal Sex Male 12:18 PM HOSPICE SUPERINTENDENT Gender Identity Not on file Sexual Orientation Not on file Occupation Industry Job Start Date Job End Date Retired Not on file Not on file Not on file Last Filed Vital Signs Vital Sign Reading Time Taken Comments Blood Pressure 140/83 05/15/2023 10:00 AM HOSPICE SUPERINTENDENT Pulse 66 05/15/2023 10:00 AM HOSPICE SUPERINTENDENT Temperature 36.6 C (97.8 F) 05/15/2023 10:07 AM HOSPICE SUPERINTENDENT Respiratory Rate 13 05/15/2023 10:00 AM HOSPICE SUPERINTENDENT Oxygen Saturation 100% 05/15/2023 10:00 AM HOSPICE SUPERINTENDENT Inhaled Oxygen Concentration - - Weight 90.3 kg (199 lb 1.6 oz) 05/15/2023 10:05 AM HOSPICE SUPERINTENDENT Height 175.3 cm (5' 9 ) 05/15/2023 10:05 AM HOSPICE SUPERINTENDENT Body Mass Index 29.4 05/15/2023 10:05 AM HOSPICE SUPERINTENDENT Plan of Treatment Upcoming Encounters Date Type Department Care Team (Late st Contact Info) Description 08/09/2024 1:20 PM CDT Office Visit [facility] - Endocrinology [address] [place] [address] Radha Warren, DO [address] [facility] [address] [place] [id number] Health Maintenance Due Date Last Done Comments [...] this topic Medical Devices Implanted Type Area Data Designer Device Identifier Shelf Expiration Date Model / Serial / Lot Floseal Hemostatic Matrix Implanted:Qty: 1 on 08/17/2019 by Dennis Ann DO at [facility] Left: Spine Lumbar [employer] 11/02/2020 [id number] / / [id number] Graft Bone I Fctr 2.5cc Algrf Ptty Syr Implanted:Qty: 1 on 08/17/2019 by Dennis Ann DO at [facility] Left: Spine Lumbar [employer] 05/07/2022 700-025 / / [id number] Floseal Hemostatic Matrix Implanted:Qty: 1 on 08/17/2019 by Dennis Ann DO at [facility] Left: Spine Lumbar [employer] 07/26/2020 [id number] / / [id number] Insurance [facility] MANAGED MEDICARE ADV SELF PAY NO INSURANCE Member Subscriber Plan / Payer (Ef fective for All Dates) Name:Sb Oneill Member ID:Not on file Relation to Subscriber:Not on file Name:SB ONEILL Subscriber ID:Not on file (Home) Address: [address] [place] [address] Payer ID:Not on file Group ID:Not on file Type:Self Pay Address: [facility] MANAGED MEDICARE ADV [facility] MANAGED MEDICARE ADV SELF PAY NO INSURANCE Member Subscriber Plan / Payer (Ef fective for All Dates) Name:Sb Oneill Member ID:Not on file Relation to Subscriber:Not on file Name:SB ONEILL Subscriber ID:Not on file (Home) Address: [address] [place] [address] Payer ID:Not on file Group ID:Not on file Type:Self Pay Address: [facility] MEDICARE ADV Advance Directives * Full Code (Latest Code Status on File) Date Activated Date Inactivated Comments 08/17/2019 11:45 AM 08/18/2019 3:43 PM Care Teams Curbstone Setter Relationship Specialty Start Date End Date Marcus Pate MD PCP - General 08/24/19 Marcus Pate MD Family Medicine 08/24/19 Alverto Harrington MD Production Sampler Cardiology 05/25/19
== END 2024-07-06 12:16 | disposition home or self-care (01) ==
LOC: ANHIMG 12:22
PROVIDERS: PCP Family Medicine; Visit Provider Nurse Practitioner
DX: N21.0 Calculus in bladder (principal)
CPT/HCPCS: 74018

== ENCOUNTER 2024-11-22 09:45 | Outpatient (CLI) | payer MEDICARE, SELFPAY ==
--- NOTE | ~2024-11-22 | XR_ITS ---
XR abdomen/kub 1V 11/22/2024 09:59 Indication: Left flank pain Procedure: KUB Comparison: 07/06/2024 Findings: There are bilateral renal stones. Bowel gas pattern nonobstructive. There are cholecystectomy clips. 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 Severe lumbar spondylosis with fusion at L2- L5. There are calcified granulomas of the lung bases. Impression: 1: Bilateral nephrolithiasis. Reviewed, dictated and finalized at location [facility]. Impression: 1: Bilateral nephrolithiasis.
--- OUTSIDE RECORDS SUMMARY | 2024-11-22 10:47 | XMS_ITS | Clinical Summary ---
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
--- OUTSIDE RECORDS SUMMARY | 2024-11-22 10:47 | XMS_ITS | Clinical Summary ---
Author Organization [facility] [employer] Address [address] [place] [address] Care Team Providers Care Recreational Specialist Name Role Phone Marcus Pate MD Primary Care Provider [phone] Marcus Pate MD Unavailable [phone] Alverto Harrington MD Unavailable [phone] Source Comments [facility],non-owned Affiliates and Associated Physician Practices is amultiple site organization consisting of ambulatory clinics and hospital sitesin [place], [place], [place] and [place]. This disclosure is being madepursuant to the Care Everywhere program and may not contain all information available regarding this patient. 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 PROFESSOR Gender Identity Not on file Sexual Orientation Not on file Occupation Industry Job Start Date Job End Date Retired Not on file Not on file Not on file Last Filed Vital Signs Vital Sign Reading Time Taken Comments Blood Pressure 140/83 05/15/2023 10:00 AM SOCIOLOGY PROFESSOR Pulse 66 05/15/2023 10:00 AM SOCIOLOGY PROFESSOR Temperature 36.6 C (97.8 F) 05/15/2023 10:07 AM SOCIOLOGY PROFESSOR Respiratory Rate 13 05/15/2023 10:00 AM SOCIOLOGY PROFESSOR Oxygen Saturation 100% 05/15/2023 10:00 AM SOCIOLOGY PROFESSOR Inhaled Oxygen Concentration - - Weight 90.3 kg (199 lb 1.6 oz) 05/15/2023 10:05 AM SOCIOLOGY PROFESSOR Height 175.3 cm (5' 9) 05/15/2023 10:05 AM SOCIOLOGY PROFESSOR Body Mass Index 29.4 05/15/2023 10:05 AM SOCIOLOGY PROFESSOR Plan of Treatment Health Maintenance Due Date Last Done Comments DTAP/TDAP/TD VACCINES (1 - Tdap) 1959 PNEUMOCOCCAL VACCINE 50+ (1 of 1 - PCV) 01/22/1988 ZOSTER VACCINE (1 of 2) 01/22/1988 Respiratory Syncytial Virus (RSV) Vaccine Pt: or over 60 yrs (1 - 1-dose 75+ series) 2013 DEPRESSION SCREENING 03/10/2024 MEDICARE AWV CALENDAR YEAR 2024 COVID-19 VACCINE (2024- season) 2024 03/11/2021, 05/12/2020, 04/14/2020 INFLUENZA VACCINE (#1) 2024 , 01/20/2020, 01/05/2019, Additional history exists HEPATITIS B [...] this topic Medical Devices Implanted Type Area Fondant Cooker Device Identifier Shelf Expiration Date Model / Serial / Lot Floseal Hemostatic Matrix Implanted:Qty: 1 on 08/17/2019 by Dennis Ann DO at [facility] Left: Spine Lumbar [employer] 11/02/2020 [id number] / / [id number] Graft Bone I Fctr 2.5cc Algrf Ptty Syr Implanted:Qty: 1 on 08/17/2019 by Dennis Ann DO at [facility] Left: Spine Lumbar [employer] 05/07/2022 700-025 / / [id number] Floseal Hemostatic Matrix Implanted:Qty: 1 on 08/17/2019 by Dennis Ann DO at [facility] Left: Spine Lumbar [employer] 07/26/2020 [id number] / / [id number] Insurance [facility] MANAGED MEDICARE ADV SELF PAY NO INSURANCE Member Subscriber Plan / Payer (Ef fective for All Dates) Name:Sb Oneill Member ID:Not on file Relation to Subscriber:Not on file Name:SB ONEILL Subscriber ID:Not on file (Home) Address: [address] [place] [address] Payer ID:Not on file Group ID:Not on file Type:Self Pay Address: [facility] MANAGED MEDICARE ADV [facility] MANAGED MEDICARE ADV SELF PAY NO INSURANCE Member Subscriber Plan / Payer (Ef fective for All Dates) Name:Sb Oneill Member ID:Not on file Relation to Subscriber:Not on file Name:SB ONEILL Subscriber ID:Not on file (Home) Address: [address] [place] [address] Payer ID:Not on file Group ID:Not on file Type:Self Pay Address: [facility] MANAGED MEDICARE ADV Advance Directives * Full Code (Latest Code Status on File) Date Activated Date Inactivated Comments 08/17/2019 11:45 AM 08/18/2019 3:43 PM Care Teams Recreational Specialist Relationship Specialty Start Date End Date Marcus Pate MD PCP - General 08/24/19 Marcus Pate MD Family Medicine 08/24/19 Alverto Harrington MD Product Safety Engineer Cardiology 05/25/19
--- OUTSIDE RECORDS SUMMARY | 2024-11-22 10:47 | XMS_ITS | Clinical Summary ---
Author Organization [facility] Address [address] [place] [address] Phone Care Team Providers Care Residential Real Estate Appraiser Name Role Phone Marcus Pate MD Primary Care Provider [phone] Henrry Max DO Unavailable [phone] Allergies Active Allergy Reactions Criticality Noted [...] on file Legal Sex Female 2:45 PM COMPLIANCE TESTING ANALYST Gender Identity Not on file Sexual Orientation Not on file Last Filed Vital Signs Vital Sign Reading Time Taken Comments Blood Pressure 120/76 04/23/2023 12:10 PM COMPLIANCE TESTING ANALYST Pulse 79 04/23/2023 12:10 PM COMPLIANCE TESTING ANALYST Temperature 36.7 C (98 F) 04/23/2023 12:10 PM COMPLIANCE TESTING ANALYST Respiratory Rate - - Oxygen Saturation 99% 04/23/2023 12:10 PM COMPLIANCE TESTING ANALYST Inhaled Oxygen Concentration - - Weight 90.7 kg (200 lb) 04/23/2023 12:10 PM COMPLIANCE TESTING ANALYST Height 175.3 cm (5' 9) 04/23/2023 12:10 PM COMPLIANCE TESTING ANALYST Body Mass Index 29.53 04/23/2023 12:10 PM COMPLIANCE TESTING ANALYST Plan of Treatment Health Maintenance Due Date Last Done Comments DEXA Bone Density 1940 Hepatitis C Virus (HCV) Screening 1940 Zoster Immunization (1 of 2) 01/22/1988 Respiratory Syncytial Virus (RSV) Immunization (Adult) (1 - 1-dose 75+ series) 2013 Influenza Immunization (#1) 2024 102 04/2021, 02/21/2021, 01/20/2020, Additional history exists SARS-COV-2 Immunization ( season) 2024 03/11/2021, 05/12/2020, 04/14/2020 Pneumococcal Immunization (50+ years) Completed 02/24/2020, 04/24/2015 DTaP/Tdap/Td Immunization Discontinued 11/21/2022, TdaP Immunization Completed 11/21/2022, 03/03/2019 Hepatitis B Immunization Aged Out No longer eligible based on patient's age to complete this topic Human Papillomavirus (HPV) Immunization Aged Out No longer eligible based on patient's age to complete this topic Meningococcal Immunization (ACWY) Aged Out No longer eligible based on patient's age to complete this topic Rotavirus Immunization Aged Out No lo nger eligible based on patient's age to complete this topic Insurance [facility] Care Teams Residential Real Estate Appraiser Relationship Specialty Start Date End Date Marcus Pate MD [address] [place] [address] PCP - General Family Medicine 04/09/23 Henrry Max DO [address] [facility] [address] [place] [address] Consulting Physician Oncology 04/09/23
== END 2024-11-22 09:46 | disposition home or self-care (01) ==
PROVIDERS: PCP Family Medicine; Visit Provider Urology
DX: N21.0 Calculus in bladder (principal); N20.0 Calculus of kidney
CPT/HCPCS: 74018